=== PATIENT | male | born 1945 | race Caucasian/White ===

== ENCOUNTER → 2018-06-22 | Outpatient (CLI) | payer MEDICARE ==
--- NOTE | 2018-06-22 09:21 | CT ---
EXAMINATION TYPE: CT iac wo con DATE OF EXAM: 06/22/2018 COMPARISON: HISTORY: Recurrent ear infections. CT DLP: 150mGycm Automated exposure control for dose reduction was used. FINDINGS: The external auditory canals are patent bilaterally. There is soft tissue that surrounds the right ossicular chain and middle ear cavity consistent with c holesteatoma. There appears to be erosive change of the ossicular chain. Thickening of the tympanic m embrane is noted. There is near complete opacification of the right sided mastoid air cells. No bony destructive process is noted. Left-sided ossicular chain and middle ear structures are within normal limits. Left-sided tympanic m embrane is unremarkable. Left-sided mastoid air cells are well-aerated. The cochlea and the semicircular canals are symmetric and unremarkable. Vestibular aqueduct and inte rnal carotid canal appear unremarkable. Temporomandibular joints are maintained bilaterally. Mild chronic sinusitis involving the maxillary and ethmoid air cells. IMPRESSION: 1. 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
== END | disposition home or self-care (01) ==
LOC: RADCTMAIN 06:46
PROVIDERS: ATTEND Otolaryngology
DX: H70.91 Unspecified mastoiditis, right ear (principal); H71.91 Unspecified cholesteatoma, right ear
CPT/HCPCS: 70480

== ENCOUNTER 2020-06-04 07:39 | Emergency (ER) | payer MEDICARE ==
[2020-06-04 07:46] VITALS: BP 151/79; PULSE 58; RESP 18; TEMP 98.2
[2020-06-04] MEDS ORDERED: DIPH,PERTUS(ACELL)TETVAC-LF 0.5 ML VIAL IM ONE (07:54)
[2020-06-04] MEDS ORDERED: FLUORESCEIN STRIPS 1 MG STRIP LEFT EYE STA (07:55)
[2020-06-04] MEDS ORDERED: PROPARACAINE 0.5% OPHTH DROPS 15 ML BTL LEFT EYE STA (07:55)
--- NOTE | 2020-06-04 08:13 | ED ---
General Adult HPI - General Source: patient, RN notes reviewed Mode of arrival: ambulatory Limitations: no limitations <Wade Perez - Last Filed: 06/04/20 08:31> <Peter Galo - Last Filed: 06/04/20 08:52> - General Chief complaint: Eye Problems Stated complaint: lt eye irritation Time Seen by Provider: 06/04/20 07:54 - History of Present Illness Initial comments: 75-year-old male presents to the emergency room for a chief complaint of left eye pain. Patient states that yesterday around 4:00 PM he was pulling out a cage around a blush. States that he hit his eye with this. States it has been irritated since that time. He states he did get some small pieces of dirt out of the eye. He is not sure if there is anything left in the eye. He denies visual changes beside mild blurry vision from his eye watering. He reports that keeping his eye open and not blinking makes it feel better. He also reports a cold compress over the closed eye makes it feel better. Patient reports he is not up-to-date on tetanus. He does not wear contacts. Patient has no other complaints at this time including shortness of breath, chest pain, abdominal pain, nausea or vomiting, headache, or visual changes. (Wade Perez) - Related Data Home Medications Medication Instructions Recorded Confirmed Aspirin 81 mg PO DAILY 02/14/14 06/04/20 Multivitamins, Thera [Multivitamin] 1 tab PO DAILY 02/14/14 06/04/20 Atorvastatin [Lipitor] 40 mg PO HS 06/04/20 06/04/20 Chlorthalidone [Hygroton] 25 mg PO DAILY 06/04/20 06/04/20 amLODIPine [Norvasc] 10 mg PO HS 06/04/20 06/04/20 Previous Rx's Medication Instructions Recorded Erythromycin Ophth Oint [Romycin 1 applic LEFT EYE QID 7 Days #10 gm 06/04/20 Ophth Oint] Allergies Allergy/AdvReac Type Severity Reaction Status Date / Time No Known Allergies Allergy Verified 06/04/20 08:17 Review of Systems ROS Other: All systems not noted in ROS Statement are negative. <Wade Perez - Last Filed: 06/04/20 08:31> ROS Other: All systems not noted in ROS Statement are negative. <Peter aGlo - Last Filed: 06/04/20 08:52> ROS Statement: Those systems with pertinent positive or pertinent negative responses have been documented in the HPI. Past Medical History Past Medical History: Hypertension Additional Past Medical History / Comment(s): SINUS INFECTION History of Any Multi-Drug Resistant Organisms: None Reported Additional Past Surgical History / Comment(s): MYRINGOTOMY W/ MIHIR TUBES INSERTED 02-13-14 Past Anesthesia/Blood Transfusion Reactions: No Reported Reaction Smoking Status: Never smoker Past Alcohol Use History: Occasional Past Drug Use History: None Reported <Wade Perez P - Last Filed: 06/04/20 08:31> General Exam Limitations: no limitations General appearance: alert, in no apparent distress Head exam: Present: atraumatic, normocephalic, normal inspection Eye exam: Present: PERRL, EOMI, conjunctival injection (The patient does have erythema noted of the conjunctiva of the left eye.). Absent: scleral icterus, periorbital swelling, periorbital tenderness Expanded Eyelids: Normal Inspection: Bilateral Pupils: Regular, Round: Bilateral Sclera/Conjunctival: Injection: Left ENT exam: Present: normal exam, mucous membranes moist Neck exam: Present: normal inspection, full ROM. Absent: tenderness, meningismus, lymphadenopathy Respiratory exam: Present: normal lung sounds bilaterally. Absent: respiratory distress, wheezes, rales, rhonchi, stridor Cardiovascular Exam: Present: regular rate, normal rhythm, normal heart sounds. Absent: systolic murmur, diastolic murmur, rubs, gallop, clicks <Wade Perez - Last Filed: 06/04/20 08:31> Course <Peter Galo - Last Filed: 06/04/20 08:52> Vital Signs 06/04/20 07:43 Temperature 98.2 F Pulse Rate 58 L Respiratory 18 Rate Blood Pressure 151/79 O2 Sat by Pulse 98 Oximetry - Reevaluation(s) Reevaluation #1: 06/04/20 08:51 PA supervision: I proceeded [id number] evaluation the patient. He did do some gardening yesterday was pointing up a fence from around a pagan and subsequently struck him in the left eye. He was concerned he may have a foreign body. He does demonstrate evidence of a corneal abrasion. He does have some corneal abrasion and some scleral injection no other significant findings. I do agree with the assessment and plan. (Peter Galo) Medical Decision Making <Wade Perez - Last Filed: 06/04/20 08:31> - Medical Decision Making The eye was numbed with proparacaine which did alleviate patient symptoms momentarily. The eye was inspected, conjunctiva is erythematous. Both eyelids were flipped, no foreign bodies. The eye was flushed with saline, no evidence of foreign body. Fluorescein stain was used with the Wood's lamp, there is an abrasion at about 4:00 on the left eye. Patient will be treated with antibiotic ointment. He is updated on tetanus. He was given referral to ophthalmology. He will return for any worsening symptoms and will otherwise follow up with his doctor. (Wade Perez) Disposition Is patient prescribed a controlled substance at d/c from ED?: No Time of Disposition: 08:26 <Wade Perez - Last Filed: 06/04/20 08:31> <Peter Galo - Last Filed: 06/04/20 08:52> Clinical Impression: Corneal abrasion, left Disposition: HOME SELF-CARE Condition: Good Instructions (If sedation given, give patient instructions): Corneal Abrasion (ED) Additional Instructions: Please apply antibiotic ointment as directed. Please follow-up with op hthalmology. If you have any worsening symptoms return to the emergency room. Prescriptions: Erythromycin Ophth Oint [Romycin Ophth Oint] 1 applic LEFT EYE QID 7 Days #10 gm Referrals: Liu Gonzalez MD [Primary Care Provider] - 1-2 days Jean Vivar MD [STAFF PHYSICIAN] - 1-2 days
[2020-06-04] MEDS ORDERED: ERYTHROMYCIN 5 MG/GM OPHTH OINT 1 GM TUBE BOTH EYES STA (08:27)
== END 2020-06-04 08:46 | disposition home or self-care (01) ==
LOC: EC 07:39
DX: S05.02XA Injury of conjunctiva and corneal abrasion without foreign body, left eye, initial encounter (principal); I10 Essential (primary) hypertension; Z79.82 Long term (current) use of aspirin; Z79.899 Other long term (current) drug therapy; Z23 Encounter for immunization; W22.8XXA Striking against or struck by other objects, initial encounter; Y93.H2 Activity, gardening and landscaping; Y92.89 Other specified places as the place of occurrence of the external cause
CPT/HCPCS: 90471; 90715; 99283

== ENCOUNTER → 2020-10-25 | Outpatient (CLI) | payer MEDICARE ==
[2020-10-26 01:49] LABS: African American GFR (CKD) 76.8 (60.0-200.0); Albumin 4.8 g/dL (3.80-4.90); Albumin/Globulin Ratio 1.78 (1.60-3.17); Anion Gap 11.9 mmol/L (4.00-12.00); BUN/Creat Ratio 20.91 Ratio (12.00-20.00); Calcium 9.9 mg/dL (8.7-10.3); Carbon Dioxide 29.1 mmol/L (21.6-31.8); Chol/HDL Ratio 2.96; Globulin 2.7 g/dL (1.6-3.3); LDL Cholesterol,Calculated 74.8 mg/dL (0.0-131.0); Non-African American GFR(CKD) 66.2 (60.0-200.0); Potassium 4.1 mmol/L (3.5-5.5); Total Bilirubin 0.7 mg/dL (0.3-1.2); Total Protein 7.5 g/dL (6.2-8.2); VLDL Calculation 21.2 mg/dL (5.00-40.00)
== END | disposition home or self-care (01) ==
LOC: LABWHC1 08:06
PROVIDERS: ATTEND Internal Medicine Interventional Cardiology
DX: E78.2 Mixed hyperlipidemia (principal)
CPT/HCPCS: 36415; 80053; 80061

== ENCOUNTER → 2020-11-21 | Outpatient (CLI) | payer MEDICARE ==
[2020-11-21 12:36] LABS: HCT 46.5 % (39.0-53.0); HGB 16.2 gm/dL (13.0-17.5); MCH 32.3 pg (25.0-35.0); MCHC 34.9 g/dL (31.0-37.0); MCV 92.5 fL (80.0-100.0); Mean Platelet Volume 6.9; Platelet Count 246 k/uL (150-450); RBC 5.02 m/uL (4.30-5.90); RDW 12.5 % (11.5-15.5); WBC 6.9 k/uL (3.8-10.6)
[2020-11-21 13:00] LABS: African American GFR (CKD) >90 (>60 ml/min/1.73 sqM); Anion Gap 9 mmol/L; Blood Urea Nitrogen 28 mg/dL (9-20); Carbon Dioxide 30 mmol/L (22-30); Chloride 98 mmol/L (98-107); Non-African American GFR(CKD) 84 (>60 ml/min/1.73 sqM); Potassium 3.9 mmol/L (3.5-5.1); Sodium 137 mmol/L (137-145)
== END | disposition home or self-care (01) ==
LOC: LABPAT 12:13
PROVIDERS: ATTEND Internal Medicine Interventional Cardiology
DX: Z01.818 Encounter for other preprocedural examination (principal); I25.10 Atherosclerotic heart disease of native coronary artery without angina pectoris
CPT/HCPCS: 36415; 80051; 82565; 84520; 85027

== ENCOUNTER 2020-12-05 08:02 | Day surgery (SDC) | payer MEDICARE ==
[2020-11-30 15:38] VITALS: BMI 34.4
[~2020-12-05 08:02] MED LIST: ALPRAZolam 0.25 MG TAB PO PRN; ALPRAZolam 0.5 MG TAB PO PRN; ASPIRIN 325 MG TAB PO ONE; ATORVASTATIN 80 MG TAB PO ONE; LACTATED RINGERS 1,000 ML IV SCH; LIDOCAINE 1% (10MG/ML) FOR IV START INTRADERMA PRN; NITROGLYCERIN SL TABS 0.4 MG TAB SUBLINGUAL PRN; SODIUM CHLORIDE 0.9% 1,000 ML in EMPTY BAG 1 BAG IV ONE
[2020-12-05 08:29] VITALS: RESP 16; TEMP 97.8
[2020-12-05] MEDS ORDERED: VERAPAMIL 2.5 MG/ML 2 ML AMP ONE (08:53)
[2020-12-05] MEDS ORDERED: fentaNYL (PF) 50 MCG/ML 2 ML AMP ONE (08:53)
[2020-12-05] MEDS ORDERED: HEPARIN SODIUM 1,000 UN/ML (10ML VL) ONE (08:53)
[2020-12-05] MEDS ORDERED: LIDOCAINE 1% INJ 10MG/ML (20 ML MDV) ONE (08:53)
[2020-12-05] MEDS ORDERED: fentaNYL (PF) 50 MCG/ML 2 ML AMP IVP ONE (09:17)
[2020-12-05] MEDS ORDERED: LIDOCAINE 1% INJ 10MG/ML (20 ML MDV) SQ ONE (09:20)
[2020-12-05] MEDS ORDERED: MIDAZOLAM 2 MG/2 ML VIAL IVP ONE (09:23)
[2020-12-05] MEDS ORDERED: VERAPAMIL SYRINGE (5 MG/10 ML) INTRAARTER ONE (09:24)
[2020-12-05] MEDS: HEPARIN SODIUM 1,000 UN/ML (10ML VL) IV ONE ×3 (09:28→10:00)
[2020-12-05] MEDS ORDERED: CLOPIDOGREL 75 MG TAB ONE (09:37)
[2020-12-05] MEDS ORDERED: CLOPIDOGREL 75 MG TAB PO ONE (09:40)
[2020-12-05] MEDS ORDERED: NITROGLYCERIN 1000MCG/10ML SYRINGE INTRACORON ONE (09:45)
[2020-12-05] MEDS ORDERED: IOPAMIDOL-370 125ML BTL INJ ONE (09:49)
[2020-12-05] MEDS ORDERED: IOPAMIDOL-370 100ML BTL INJ ONE (09:55)
[2020-12-05] MEDS ORDERED: RX INFO: IV CONTRAST WAS GIVEN 1 EACH MISC MISCELLANE PRN (10:10)
[2020-12-05] MEDS ORDERED: NITROGLYCERIN SL TABS 0.4 MG TAB SUBLINGUAL PRN (10:10)
[2020-12-05] MEDS ORDERED: ZOLPIDEM 5 MG TAB PO PRN (10:10)
[2020-12-05] MEDS ORDERED: MAG HYDROX/AL HYDROX/SIMETH 30 ML CUP PO PRN (10:10)
[2020-12-05] MEDS ORDERED: ATROPINE SULFATE 0.1 MG/ML 10ML SYRINGE IV PRN (10:10)
[2020-12-05] MEDS ORDERED: SODIUM CHLORIDE 0.9% 1,000 ML IV SCH (10:15)
--- NOTE | 2020-12-05 10:41 | CC ---
CARDIAC CATHETERIZATION REPORT Mr. Smith is a 75-year-old male with a known history of hypertension, hyperlipidemia, who has been complaining of episode of chest discomfort, underwent a myocardial perfusion imaging that showed a fixed inferior wall defect, but he had evidence of significant ST-segment depression that persisted late in recovery. In view of that, recommendation was made regarding cardiac catheterization. The procedure as well as the risks and the complications were discussed with the patient who is in full understanding and agreement. PROCEDURE: Patient was brought to the quality lab technician in fasting semi-sedated state after receiving fentanyl and Benadryl and achieving moderate conscious sedated state. Using Xylocaine anesthesia and Seldinger technique a 6-Ukrainian sheath was introduced in the right radial artery. Selective right and left coronary angiography performed using 5-Ukrainian 3.5 bend right and left Becky catheter. Multiple views of the coronary artery including hemiaxial views were obtained. Following that, catheters were removed. Images were reviewed. Of note, the patient received initially 5000 units of intravenous heparin as well as intra-arterial verapamil. FINDINGS: FLUOROSCOPY: There was calcification of the aortic valve. LEFT MAIN: This is a short size vessel, bifurcating into left circumflex, left anterior descending artery. Left main coronary artery has no evidence of high-grade stenosis. LEFT ANTERIOR DESCENDING ARTERY: This is a large-sized vessel tapers down distal third, gives rise to a diagonal branch proximally. The left anterior descending artery in the proximal segment has a 20% to 30% plaque. There is another 30% to 40% plaque in the mid segment with diffuse intimal disease. There is no focal high-grade stenosis. LEFT CIRCUMFLEX: This is a nondominant vessel, large in caliber giving rise to a large obtuse marginal branch. The proximal left circumflex at the takeoff of the obtuse marginal branch has a 95% eccentric lesion. The rest of the vessel has no high-grade stenosis. RIGHT CORONARY ARTERY: This is a dominant vessel bifurcating distally PDA and posterolateral segment and branches. The right coronary artery has diffuse intimal disease in the proximal mid and distal area with stenosis up to 30% to 40% without any discrete high-grade stenosis. There is a plaque at the takeoff of the PDA. LEFT VENTRICULOGRAM: Left ventriculogram was not performed. CONCLUSION: 1. Calcified aortic valve. 2. Critical stenosis in the proximal left circumflex and the proximal obtuse marginal branch 1. 3. Moderate disease in the LAD and the right coronary artery. RECOMMENDATION: In view of finding anatomy, I recommend proceeding with angioplasty and stenting of the left circumflex. The procedure as well as the risks and the complications were discussed with the patient who is in full understanding and agreement. FARIDEH / MONSE: [id number] /
--- NOTE | 2020-12-05 10:45 | PTCA ---
PERCUTANEOUSTRANS CORORONARY ANGIOGRAPHY Mr. Smith is a 75-year-old male with known history of hypertension, hyperlipidemia, who presented with symptoms of chest discomfort and had an abnormal electrocardiographic stress testing. In view of that, underwent cardiac catheterization and was found to have critical stenosis involving the proximal left circumflex. In view of that, recommendation was made regarding angioplasty and stenting. The procedure as well as the risks and the complications were discussed with the patient who is in full understanding and agreement. PROCEDURE: A 6-[place] 3.5 guiding catheter introduced in the system. After cannulating the left main a 0.014 balanced medium weight J-wire was advanced across the lesion, positioned distally then a 2.5 x 12 mm NC Trek balloon was advanced at one inflation at 8 atmospheres was done. Following that, the balloon was removed and a 2.5 x 15 mm Xience Guillermina stent was advanced, deployed and post dilated at 16 atmospheres. After the last inflation, after appropriate wait, the balloon and the guidewire were withdrawn back in the guiding catheter. Images were obtained and repeated. Those images reveal stable successful stenting. At that point, the guiding catheter, the balloon and the guidewire removed. The sheath was removed. Hemostasis was obtained with deployment of a TR band. There was no immediate complication. Patient was returned to his room in stable condition. Of note, the patient received an additional 3000 units of intravenous heparin during the procedure. He received a loading dose of clopidogrel. He had no chest discomfort or significant EKG changes with the inflation. RESULTS: Successful stenting of the proximal left circumflex with reduction of stenosis from 95% to 0%. RECOMMENDATION: Patient will be continued on aspirin, Plavix and statin. The importance of dual antiplatelet treatment were discussed with the patient and he is in full understanding and agreement. Duration of sedation is 36 minutes. MMODL / IJN: [id number] /
[2020-12-05 11:01] VITALS: BP 122/63; PULSE 50
[2020-12-05] MEDS ORDERED: ATORVASTATIN 40 MG TAB PO SCH (21:00)
[2020-12-05] MEDS ORDERED: amLODIPine 10 MG TAB PO SCH (21:00)
[2020-12-06] MEDS ORDERED: NON FORMULARY DRUG (Cinnamon Bark [Cinnamon] 500 MG Capsule) PO SCH (09:00)
[2020-12-06] MEDS ORDERED: NON FORMULARY DRUG (Garlic [Garlic] 1 EACH Tablet) PO SCH (09:00)
[2020-12-06] MEDS ORDERED: NON FORMULARY DRUG (Glucos Sul 2kcl/Msm/Chond/C/Mn [Glucosamine Chondroitin Cap] 1 EACH Ca PO SCH (09:00)
[2020-12-06] MEDS ORDERED: ASPIRIN 81 MG PO SCH (09:00)
[2020-12-06] MEDS ORDERED: CHLORTHALIDONE 25 MG TAB PO SCH (09:00)
[2020-12-06] MEDS ORDERED: NON FORMULARY DRUG (Omega-3 Fatty Acids/Fish Oil [Fish Oil 1,000 Mg Softgel] 1 EACH Capsul PO SCH (09:00)
[2020-12-06] MEDS ORDERED: CLOPIDOGREL 75 MG TAB PO SCH (09:00)
== END 2020-12-05 14:50 | disposition home or self-care (01) ==
LOC: CATHCVL 08:02
PROVIDERS: ATTEND Internal Medicine Interventional Cardiology
DX: I25.10 Atherosclerotic heart disease of native coronary artery without angina pectoris (principal); I70.0 Atherosclerosis of aorta; I10 Essential (primary) hypertension; R94.39 Abnormal result of other cardiovascular function study; E78.2 Mixed hyperlipidemia; E78.00 Pure hypercholesterolemia, unspecified; I73.9 Peripheral vascular disease, unspecified; Z82.49 Family history of ischemic heart disease and other diseases of the circulatory system; I35.0 Nonrheumatic aortic (valve) stenosis; I65.21 Occlusion and stenosis of right carotid artery; Z79.82 Long term (current) use of aspirin; Z79.899 Other long term (current) drug therapy
CPT/HCPCS: 93454; 85347; 87635; C9600; C1769 ×2; C1725; C1887; C1874; C1894; J2250; J2001; J3010; J1644; Q9967 ×2

== ENCOUNTER 2021-02-05 12:31 | Emergency (ER) | payer MEDICARE ==
[2021-02-05 12:59] VITALS: BP 124/77; PULSE 60; RESP 18; TEMP 99
[2021-02-05] MEDS ORDERED: ACETAMINOPHEN TAB 500 MG TAB PO STA (14:18)
--- NOTE | 2021-02-05 14:48 | XR ---
EXAMINATION TYPE: XR foot complete LT DATE OF EXAM: 02/05/2021 CLINICAL HISTORY: Left great toe pain x2 days TECHNIQUE: Frontal, lateral, and oblique images of the left foot are obtained. COMPARISON: None FINDINGS: There are marked degenerative changes seen at the first metatarsal-phalangeal joint with subchondral sclerosis and osteophytosis. Degenerative changes are also noted in the mid foot. Os peroneum is seen . There are enthesophytes at the Achilles tendon and plantar fascial attachments onto the calcaneus. No definite acute fracture or dislocation. IMPRESSION: Chronic changes, as described.
--- NOTE | 2021-02-05 14:50 | ED ---
Extremity Problem HPI - General Chief complaint: Extremity Problem,Nontraumatic Stated complaint: L Foot Pain/Swelling Time Seen by Provider: 02/05/21 14:00 Source: patient, RN notes reviewed Mode of arrival: ambulatory Limitations: no limitations - History of Present Illness Initial comments: Patient is a 76-year-old male presents to emergency room complaining of left great toe pain with some redness and left calf cramping for the past several days. He notes he does not have a history of gout does not remember injuring or have any trauma to his toe. He notes that he recently followed scrum coach in was told everything looked good. He notes that he has not like to take pain medication or NSAIDs as he was hooked on it earlier in his life and cause some GI issues. He notes that he does take cholesterol medication and was informed that sometimes it can cause muscle cramps and fatigue and aches. He denied any other complaints or issues. He didn't denied any weakness numbness tingling in his left great toe. He did have some decreased range of motion secondary to pain. He denied any chest pain shortness breath headache nausea vomiting diarrhea constipation fever fatigue chills. - Related Data Home Medications Medication Instructions Recorded Confirmed Aspirin 81 mg PO DAILY 02/14/14 12/05/20 Atorvastatin [Lipitor] 40 mg PO HS 06/04/20 12/05/20 Chlorthalidone [Hygroton] 25 mg PO DAILY 06/04/20 12/05/20 amLODIPine [Norvasc] 10 mg PO HS 06/04/20 12/05/20 Cinnamon Bark [Cinnamon] 500 mg PO DAILY 11/30/20 12/05/20 Garlic 1 each PO DAILY 11/30/20 12/05/20 Glucos Sul 2Kcl/MSM/Chond/C/Mn 1 each PO DAILY 11/30/20 12/05/20 [Glucosamine Chondroitin Cap] [place]-3 Fatty Acids/Fish Oil [Fish 1 each PO DAILY 11/30/20 12/05/20 Oil 1,000 mg Softgel] Previous Rx's Medication Instructions Recorded Clopidogrel Bisulfate [Plavix] 75 mg PO DAILY #90 tab 12/05/20 Nitroglycerin Sl Tabs [Nitrostat] 0.4 mg SUBLINGUAL Q5M PRN #25 tab 12/05/20 Naproxen [Naprosyn] 500 mg PO Q12HR 7 Days #14 tab 02/05/21 Allergies Allergy/AdvReac Type Severity Reaction Status Date / Time No Known Allergies Allergy Verified 02/05/21 12:59 Review of Systems ROS Statement: Those systems with pertinent positive or pertinent negative responses have been documented in the HPI. ROS Other: All systems not noted in ROS Statement are negative. Past Medical History Past Medical History: Hyperlipidemia, Hypertension, Osteoarthritis (OA) Additional Past Medical History / Comment(s): recent stress test, "extra heartbeat" per pt., had duodenal ulcer in college, sinus & allergy issues History of Any Multi-Drug Resistant Organisms: None Reported Past Surgical History: Appendectomy, Heart Catheterization, Heart Catheterization With Stent Additional Past Surgical History / Comment(s): MYRINGOTOMY W/ MIHIR TUBES INSERTED, several ear surgeries related to infection Past Anesthesia/Blood Transfusion Reactions: No Reported Reaction Past Psychological History: Anxiety Smoking Status: Never smoker Past Alcohol Use History: Occasional Past Drug Use History: None Reported General Exam Limitations: no limitations General appearance: alert, in no apparent distress, obese Head exam: Present: atraumatic, normocephalic, normal inspection Neck exam: Present: normal inspection Respiratory exam: Present: normal lung sounds bilaterally. Absent: respiratory distress, wheezes, rales, rhonchi, stridor Cardiovascular Exam: Present: regular rate, normal rhythm, normal heart sounds. Absent: systolic murmur, diastolic murmur, rubs, gallop, clicks Left Lower Leg exam: Present: normal inspection, full ROM, tenderness (Tenderness over bruise on the medial aspect.). Absent: swelling, abrasion, laceration Foot/Toe exam: Present: tenderness (Left great toe), swelling (To the proximal joint of the left great toe), erythema (Possible joint of the left great toe). Absent: full ROM (Neck and head pain) Neurological exam: Present: alert, oriented X3, CN II-XII intact Psychiatric exam: Present: normal affect, normal mood Skin exam: Present: warm, dry, intact, normal color. Absent: rash Course Vital Signs 02/05/21 12:56 Temperature 99 F Pulse Rate 60 Respiratory 18 Rate Blood Pressure 124/77 O2 Sat by Pulse 98 Oximetry Medical Decision Making - Medical Decision Making 76-year-old male complaining of left great toe and left calf cramping for the past several days. 1000 mg of Tylenol, left foot x-ray and left lower extremity ultrasound ordered. Labs ordered. Labs: Potassium 3.0, rest unremarkable. 20 mEq of potassium ordered. Imaging negative for any acute process. Most likely gout given monoarthropathy with redness and tenderness and swelling to the left metatarsophalangeal joint of the first digit. Case discussed with Dr. Brooke, patient discharge home with NSAID therapy and follow-up primary care. - Lab Data Result diagrams: 02/05/21 14:42 02/05/21 14:42 Lab Results 02/05/21 02/05/21 Range/Units 14:42 14:42 WBC 8.7 (3.8-10.6) k/uL RBC 4.89 (4.30-5.90) m/uL Hgb 15.9 (13.0-17.5) gm/dL Hct 44.8 (39.0-53.0) % MCV 91.7 (80.0-100.0) fL MCH 32.6 (25.0-35.0) pg MCHC 35.5 (31.0-37.0) g/dL RDW 12.6 (11.5-15.5) % Plt Count 210 (150-450) k/uL MPV 7.4 Neutrophils % 77 % Lymphocytes % 11 % Monocytes % 8 % Eosinophils % 1 % Basophils % 0 % Neutrophils # 6.7 (1.3-7.7) k/uL Lymphocytes # 1.0 (1.0-4.8) k/uL Monocytes # 0.7 (0-1.0) k/uL Eosinophils # 0.1 (0-0.7) k/uL Basophils # 0.0 (0-0.2) k/uL Sodium 137 (137-145) mmol/L Potassium 3.0 L (3.5-5.1) mmol/L Chloride 98 (98-107) mmol/L Carbon Dioxide 28 (22-30) mmol/L Anion Gap 11 mmol/L BUN 24 H (9-20) mg/dL Creatinine 0.87 (0.66-1.25) mg/dL Est GFR (CKD-EPI)AfAm >90 (>60 ml/min/1.73 sqM) Est GFR (CKD-EPI)NonAf 85 (>60 ml/min/1.73 sqM) Glucose 111 H (74-99) mg/dL Calcium 9.4 (8.4-10.2) mg/dL - Radiology Data Radiology results: report reviewed, image reviewed Left foot x-ray: There are marked degenerative changes seen at the first metatarsophalangeal joint with subchondral sclerosis and osteophytosis. Degenerative changes are also noted in the midfoot. Os. [place] seen. There are empty sulfites at the Achilles tendon and plantar fascial attachments onto the calcaneus. No definite acute fracture or dislocation. Ultrasound left lower extremity: Negative for DVT. Disposition Clinical Impression: Gouty arthritis of left great toe Disposition: HOME SELF-CARE Condition: Stable Instructions (If sedation given, give patient instructions): Gout (ED) Additional Instructions: Please return to the Emergency Department if symptoms worsen or any other concerns. Follow-up with primary care in the next several days. Take naproxen as prescribed. Use as tolerated. Prescriptions: Naproxen [Naprosyn] 500 mg PO Q12HR 7 Days #14 tab Is patient prescribed a controlled substance at d/c from ED?: No Referrals: Liu Gnozalez MD [Primary Care Provider] - 1-2 days Time of Disposition: 15:47
[2021-02-05 14:58] LABS: Basophils % (A) 0 %; Eosinophils # (A) 0.1 k/uL (0-0.7); Eosinophils % (A) 1 %; HCT 44.8 % (39.0-53.0); HGB 15.9 gm/dL (13.0-17.5); Lymphocytes % (A) 11 %; MCH 32.6 pg (25.0-35.0); MCHC 35.5 g/dL (31.0-37.0); MCV 91.7 fL (80.0-100.0); Mean Platelet Volume 7.4; Monocytes # (A) 0.7 k/uL (0-1.0); Monocytes % (A) 8 %; Neutrophils # (A) 6.7 k/uL (1.3-7.7); Neutrophils % (A) 77 %; Platelet Count 210 k/uL (150-450); RBC 4.89 m/uL (4.30-5.90); RDW 12.6 % (11.5-15.5); WBC 8.7 k/uL (3.8-10.6)
[2021-02-05 15:14] LABS: African American GFR (CKD) >90 (>60 ml/min/1.73 sqM); Anion Gap 11 mmol/L; Blood Urea Nitrogen 24 mg/dL (9-20); Calcium 9.4 mg/dL (8.4-10.2); Carbon Dioxide 28 mmol/L (22-30); Chloride 98 mmol/L (98-107); Glucose 111 mg/dL (74-99); Non-African American GFR(CKD) 85 (>60 ml/min/1.73 sqM); Sodium 137 mmol/L (137-145)
[2021-02-05] MEDS ORDERED: POTASSIUM CHLORIDE ER 20 MEQ TAB.ER PO STA (15:15)
--- NOTE | 2021-02-05 15:41 | US ---
EXAMINATION TYPE: US venous doppler duplex LE LT DATE OF EXAM: 02/05/2021 3:34 PM COMPARISON: NONE CLINICAL HISTORY: Left calf pain. SIDE PERFORMED: Left TECHNIQUE: The lower extremity deep venous system is examined utilizing real time linear array sonog sheldon with graded compression, doppler sonography and color-flow sonography. VESSELS IMAGED: Common Femoral Vein Deep Femoral Vein Greater Saphenous Vein * Femoral Vein Popliteal Vein Small Saphenous Vein * Proximal Calf Veins (* superficial vessels) Left Leg: Negative for DVT IMPRESSION: Grayscale, color doppler, spectral doppler imaging performed of the deep veins of the lo wer extremities. There is normal flow, compressibility, vascular waveforms.
== END 2021-02-05 15:58 | disposition home or self-care (01) ==
LOC: EC 12:31
DX: M10.9 Gout, unspecified (principal); R22.42 Localized swelling, mass and lump, left lower limb; I10 Essential (primary) hypertension; E78.5 Hyperlipidemia, unspecified; M19.90 Unspecified osteoarthritis, unspecified site; Z79.82 Long term (current) use of aspirin; Z79.899 Other long term (current) drug therapy
CPT/HCPCS: 36415; 80048; 85025; 99284

== ENCOUNTER → 2021-02-28 | Outpatient (CLI) | payer MEDICARE ==
[2021-02-28 14:00] LABS: Chol/HDL Ratio 2.85; LDL Cholesterol,Calculated 58.8 mg/dL (0.0-131.0); VLDL Calculation 13.2 mg/dL (5.00-40.00)
== END | disposition home or self-care (01) ==
LOC: LABWHC1 07:27
PROVIDERS: ATTEND Nurse Practitioner Adult Health
DX: E78.2 Mixed hyperlipidemia (principal)
CPT/HCPCS: 36415; 80061; 84450; 84460

== ENCOUNTER → 2021-08-23 | Outpatient (CLI) | payer MEDICARE ==
[2021-08-23 15:31] LABS: ALT 45 U/L (10-49); AST 34 U/L (14-35); African American GFR (CKD) 85.8 (60.0-200.0); Albumin 4.3 g/dL (3.8-4.9); Albumin/Globulin Ratio 1.75 (1.60-3.17); Alkaline Phosphatase 82 U/L (41-126); BUN/Creat Ratio 22.04 Ratio (12.00-20.00); Carbon Dioxide 25.6 mmol/L (20.0-27.5); Chloride 101 mmol/L (96-109); Chol/HDL Ratio 2.46 Ratio; Globulin 2.5 g/dL (1.6-3.3); Glucose 120 mg/dL (70-110); Potassium 4.1 mmol/L (3.5-5.5); Sodium 139 mmol/L (135-145); Total Protein 6.7 g/dL (6.2-8.2); VLDL Calculation 11.86 mg/dL (5.00-40.00)
== END | disposition home or self-care (01) ==
LOC: LABWHC1 08:35
PROVIDERS: ATTEND Internal Medicine Interventional Cardiology
DX: E78.2 Mixed hyperlipidemia (principal)
CPT/HCPCS: 36415; 80053; 80061

== ENCOUNTER → 2022-02-21 | Outpatient (CLI) | payer MEDICARE ==
[2022-02-21 14:55] LABS: ALT 47 U/L (10-49); AST 35 U/L (14-35); African American GFR (CKD) 75.7 (60.0-200.0); Albumin 4.4 g/dL (3.8-4.9); Albumin/Globulin Ratio 1.57 (1.60-3.17); Alkaline Phosphatase 84 U/L (41-126); BUN/Creat Ratio 15.73 Ratio (12.00-20.00); Blood Urea Nitrogen 17.3 mg/dL (9.0-27.0); Calcium 9.3 mg/dL (8.7-10.3); Carbon Dioxide 28.6 mmol/L (20.0-27.5); Chloride 105 mmol/L (96-109); Globulin 2.8 g/dL (1.6-3.3); Glucose 115 mg/dL (70-110); LDL Cholesterol,Calculated 51.1 mg/dL (0.0-131.0); Non-African American GFR(CKD) 65.3 (60.0-200.0); Potassium 4.6 mmol/L (3.5-5.5); Sodium 142 mmol/L (135-145); Total Protein 7.2 g/dL (6.2-8.2); VLDL Calculation 12.16 mg/dL (5.00-40.00)
== END | disposition home or self-care (01) ==
LOC: LABWHC1 07:56
PROVIDERS: ATTEND Internal Medicine Interventional Cardiology
DX: E78.2 Mixed hyperlipidemia (principal)
CPT/HCPCS: 36415; 80053; 80061

== ENCOUNTER → 2022-08-27 | Outpatient (CLI) | payer MEDICARE ==
[2022-08-27 16:19] LABS: ALT 49 U/L (10-49)
[2022-08-27 16:20] LABS: AST 42 U/L (14-35); Chol/HDL Ratio 2.62 Ratio; LDL Cholesterol,Calculated 59.1 mg/dL (0.0-131.0); VLDL Calculation 15.14 mg/dL (5.00-40.00)
== END | disposition home or self-care (01) ==
LOC: LABWHC1 08:14
PROVIDERS: ATTEND Internal Medicine Interventional Cardiology
DX: E78.2 Mixed hyperlipidemia (principal)
CPT/HCPCS: 36415; 80061; 84450; 84460

== ENCOUNTER 2022-09-03 08:36 | Day surgery (SDC) | payer MEDICARE ==
[~2022-09-03 08:36] MED LIST changes: -ALPRAZolam 0.25 MG TAB PO PRN; -ALPRAZolam 0.5 MG TAB PO PRN; -ASPIRIN 325 MG TAB PO ONE; -ATORVASTATIN 80 MG TAB PO ONE; -NITROGLYCERIN SL TABS 0.4 MG TAB SUBLINGUAL PRN; -SODIUM CHLORIDE 0.9% 1,000 ML in EMPTY BAG 1 BAG IV ONE
[2022-09-03 09:42] VITALS: TEMP 97.3
[2022-09-03] MEDS ORDERED: PROPOFOL 10 MG/ML 20 ML VIAL IV ONE (09:58)
--- NOTE | 2022-09-03 10:20 | P.PCN ---
Date of Procedure: 09/03/22 Procedure(s) Performed: BRIEF HISTORY: Patient is a 77-year-old pleasant male scheduled for an elective colonoscopy as a part of screening for colon cancer. PROCEDURE PERFORMED: Colonoscopy. PREOPERATIVE DIAGNOSIS: Screening for colon cancer. IV sedation per Anesthesia. PROCEDURE: After informed consent was obtained, the patient, was brought into the endoscopy unit. IV sedation was administered by Anesthesia under continuous monitoring. Digital rectal examination was normal. Initially the Olympus CF-160 flexible video colonoscope was then inserted in the rectum, gradually advanced into the cecum without any difficulty. Careful examination was performed as the scope was gradually being withdrawn. Ileocecal valve and the appendiceal orifice were visualized and appeared normal. Prep was excellent. Mucosa of the cecum, ascending colon, transverse colon, descending colon, sigmoid colon, and rectum appeared normal. Retroflexion was performed in the rectum and no lesions were seen. The patient tolerated the procedure well. IMPRESSION: Normal-appearing colon from rectum to cecum with no evidence of colorectal neoplasia . RECOMMENDATIONS: Findings of this examination were discussed with the patient is well as his family. He was advised to have a repeat screening colonoscopy in 10 years..
[2022-09-03 10:41] VITALS: BP 146/76; PULSE 52; RESP 16
== END 2022-09-03 11:09 | disposition home or self-care (01) ==
LOC: ORWHC2ENDO 08:36
PROVIDERS: ATTEND Internal Medicine Gastroenterology
DX: Z12.11 Encounter for screening for malignant neoplasm of colon (principal); I25.10 Atherosclerotic heart disease of native coronary artery without angina pectoris; I10 Essential (primary) hypertension; E78.5 Hyperlipidemia, unspecified; I35.0 Nonrheumatic aortic (valve) stenosis; Z95.5 Presence of coronary angioplasty implant and graft; Z79.82 Long term (current) use of aspirin; Z79.899 Other long term (current) drug therapy; Z98.890 Other specified postprocedural states
CPT/HCPCS: J2704; G0121

== ENCOUNTER → 2022-11-26 | Outpatient (CLI) | payer MEDICARE ==
[2022-11-26 09:03] LABS: ALT 42 U/L (4-49); AST 39 U/L (17-59); African American GFR (CKD) 75 (>60 ml/min/1.73 sqM); Albumin/Globulin Ratio 1.3; Alkaline Phosphatase 76 U/L (38-126); Anion Gap 4 mmol/L; Blood Urea Nitrogen 22 mg/dL (9-20); Calcium 8.9 mg/dL (8.4-10.2); Carbon Dioxide 35 mmol/L (22-30); Chloride 102 mmol/L (98-107); Glucose 117 mg/dL (74-99); Non-African American GFR(CKD) 65 (>60 ml/min/1.73 sqM); Sodium 141 mmol/L (137-145); Total Bilirubin 0.7 mg/dL (0.2-1.3)
[2022-11-26 09:56] LABS: Potassium 4.6 mmol/L (3.5-5.1)
[2022-11-26 16:46] LABS: Chol/HDL Ratio 2.52 Ratio; LDL Cholesterol,Calculated 55.2 mg/dL (0.0-131.0)
== END | disposition home or self-care (01) ==
LOC: LABWHC1 07:39
PROVIDERS: ATTEND Internal Medicine Interventional Cardiology
DX: E78.2 Mixed hyperlipidemia (principal); R06.02 Shortness of breath
CPT/HCPCS: 36415; 80053; 80061; 83880

== ENCOUNTER → 2023-01-23 | Outpatient (CLI) | payer MEDICARE ==
--- NOTE | 2023-01-23 07:19 | US ---
EXAMINATION TYPE: US duplex aorta DATE OF EXAM: 01/23/2023 COMPARISON: NONE CLINICAL INDICATION: Male, 78 years old with history of Z13.6; AAA screening. TECHNIQUE: Multiple sonographic images of the abdominal aorta are obtained. FINDINGS: EXAM MEASUREMENTS: Abdominal Aorta: Proximal: 3.2 x 2.9 cm Mid: 2.5 x 2.3 cm Distal: 2.3 x 2.3 cm Bifurcation: Right: 1.1 x 1.3 cm Left: 1.2 x 1.4 cm GUN BARREL FINISHER NOTES: Limited due to gas. Proximal segment appears aneurysmal at 3.2 cm. Mid segment elsi ears ectatic. Slightly limited visibility of iliacs. Aorta is successfully visualized through the bifurcation. IMPRESSION: No ultrasound evidence for greater than 3.0 cm AAA.
== END | disposition home or self-care (01) ==
LOC: RADUSWWP 06:36
PROVIDERS: ATTEND Family Medicine
DX: Z13.6 Encounter for screening for cardiovascular disorders (principal)
CPT/HCPCS: 76706

== ENCOUNTER → 2023-04-29 | Outpatient (CLI) | payer MEDICARE ==
[2023-04-29 18:07] LABS: ALT 44 U/L (10-49); AST 44 U/L (14-35); Albumin 4.4 d/dL (3.8-4.9); Albumin/Globulin Ratio 1.63 Ratio (1.60-3.17); Alkaline Phosphatase 85 U/L (41-126); Blood Urea Nitrogen 23.4 mg/dL (9.0-27.0); Calcium 9.7 mg/dL (8.7-10.3); Carbon Dioxide 29.4 mmol/L (21.6-31.8); Chloride 102 mmol/L (96-109); Chol/HDL Ratio 2.83 Ratio; Globulin 2.7 d/dL (1.6-3.3); Glucose 126 mg/dL (70-110); LDL Cholesterol,Calculated 56.5 mg/dL (0.0-131.0); Potassium 4.5 mmol/L (3.5-5.5); Sodium 140 mmol/L (135-145); Total Bilirubin 0.7 mg/dL (0.3-1.2); Total Protein 7.1 d/dL (6.2-8.2)
== END | disposition home or self-care (01) ==
LOC: LABWHC1 07:23
PROVIDERS: ATTEND Internal Medicine Interventional Cardiology
DX: E78.2 Mixed hyperlipidemia (principal)
CPT/HCPCS: 36415; 80053; 80061

== ENCOUNTER 2023-06-23 06:43 | Day surgery (SDC) | payer MEDICARE ==
[~2023-06-23 06:43] MED LIST changes: +ALPRAZolam 0.25 MG TAB PO PRN; +ALPRAZolam 0.5 MG TAB PO PRN; +ASPIRIN 325 MG TAB PO STA; -LACTATED RINGERS 1,000 ML IV SCH; -LIDOCAINE 1% (10MG/ML) FOR IV START INTRADERMA PRN; +NITROGLYCERIN SL TABS 0.4 MG TAB SUBLINGUAL PRN; +SODIUM CHLORIDE 0.9% 1,000 ML in EMPTY BAG 1 BAG IV SCH
[2023-06-23] MEDS ORDERED: SODIUM CHLORIDE 0.9% 1,000 ML IV ONE (07:13)
[2023-06-23 07:38] LABS: Basophils % (A) 0 %; Eosinophils # (A) 0.1 k/uL (0-0.7); Eosinophils % (A) 2 %; HGB 15.3 gm/dL (13.0-17.5); Lymphocytes # (A) 1.5 k/uL (1.0-4.8); Lymphocytes % (A) 23 %; MCV 94.3 fL (80.0-100.0); Monocytes # (A) 0.5 k/uL (0-1.0); Monocytes % (A) 7 %; Neutrophils # (A) 4.3 k/uL (1.3-7.7); Neutrophils % (A) 65 %; Platelet Count 215 k/uL (150-450); RBC 4.78 m/uL (4.30-5.90); RDW 12.9 % (11.5-15.5); WBC 6.7 k/uL (3.8-10.6)
[2023-06-23 07:41] VITALS: RESP 16; TEMP 98.3
[2023-06-23 07:56] LABS: African American GFR (CKD) >90 (>60 ml/min/1.73 sqM); Anion Gap 12 mmol/L; Blood Urea Nitrogen 22 mg/dL (9-20); Calcium 9.2 mg/dL (8.4-10.2); Carbon Dioxide 26 mmol/L (22-30); Chloride 102 mmol/L (98-107); Glucose 121 mg/dL (74-99); Non-African American GFR(CKD) 86 (>60 ml/min/1.73 sqM); Sodium 140 mmol/L (137-145)
[2023-06-23] MEDS ORDERED: VERAPAMIL 2.5 MG/ML 2 ML AMP ONE (09:16)
[2023-06-23] MEDS ORDERED: LIDOCAINE 1% INJ 10MG/ML (20 ML MDV) ONE (09:17)
[2023-06-23] MEDS ORDERED: IV FLUID CONTINUATION 1,000 ML IV ONE (09:18)
[2023-06-23] MEDS: BENZOCAINE SPRAY 1 CAN TOPICAL ONE ×2 (09:18→09:22)
[2023-06-23] MEDS ORDERED: fentaNYL (PF) 50 MCG/ML 2 ML AMP ONE (09:22)
[2023-06-23] MEDS ORDERED: MIDAZOLAM 2 MG/2 ML VIAL IVP ONE ×2 (09:25→09:26)
[2023-06-23] MEDS ORDERED: fentaNYL (PF) 50 MCG/ML 2 ML AMP IVP ONE (09:25)
--- NOTE | 2023-06-23 09:44 | P.PCN ---
Date of Procedure: 06/23/23 Description of Procedure: Indication: Aortic stenosis Procedure Description: After explaining the procedure to the patient, it's risk and complications, blood pressure, heart rate and O2 saturation were monitored. The throat was sprayed with Cetacaine. Patient received 3 mg intravenous Versed, 50 mcg intra venous fentanyl. The probe was introduced into the esophagus without difficulty. Images were obtained. Following that, the probe was removed. There was no immediate complication. Findings: Left atrial size is dilated, left atrial appendage is normal. Left ventricular size and systolic function are normal. Mild mitral annulus calcification was noted, the tricuspid valve appears to be normal. The aortic valve is a tricuspid valve with severe calcifications and reduced opening, aortic valve area by planimetry is 0.7 cm. Descending thoracic aorta revealed mild atherosclerotic changes. No pericardial effusion was noted. Contrast bubble study revealed no shunting across the interatrial septum with Valsalva maneuver. Doppler: Pulse wave and color Doppler were obtained, and revealed mild mitral and tricuspid regurgitation. The peak gradient across the aortic valve was 90 mmHg with a mean of 58 mmHg. Mild aortic regurgitation was noted. No shunting across the intra-atrial septum was noted. Conclusion: 1. Normal left ventricle size and systolic function 2. Severe tricuspid that would take valve stenosis with a mean gradient of 58 mmHg and mild aortic regurgitation 3. Mild mitral and tricuspid regurgitation 4. Mild atherosclerotic changes of the descending thoracic aorta 5. No shunting across the intra-atrial septum
[2023-06-23] MEDS: LIDOCAINE 1% INJ 10MG/ML (20 ML MDV) SQ ONE ×2 (09:54→09:55)
[2023-06-23] MEDS ORDERED: HEPARIN SODIUM 1,000 UN/ML (10ML VL) IVP ONE (09:59)
[2023-06-23] MEDS ORDERED: IOPAMIDOL-370 100ML BTL INJ ONE (10:17)
[2023-06-23 10:22] LABS: O2 Sat Blood Gas 98.6 %
[2023-06-23 10:25] LABS: O2 Sat Blood Gas 66.2 %
[2023-06-23] MEDS ORDERED: RX INFO: IV CONTRAST WAS GIVEN 1 EACH MISC MISCELLANE PRN (10:26)
[2023-06-23 10:27] LABS: O2 Sat Blood Gas 97.2 %
[2023-06-23] MEDS ORDERED: SODIUM CHLORIDE 0.9% 1,000 ML IV SCH (10:30)
--- NOTE | 2023-06-23 10:37 | P.CARDCATH ---
Date of Procedure: 06/23/23 Description of Procedure: Cardiac Catheterization: The patient is a 78-year-old male with known history of hypertension, hyperlipidemia, CAD status post stenting of the left circumflex in 2020 who has been complaining of progressive fatigue and he had evidence of progression of his aortic stenosis. Recommendations were made regarding cardiac catheterization, the risks and the complications were discussed with the patient who is in full understanding and agreement. Procedure Description: Patient was brought to labour market economist in fasting semi-sedated state after receiving Fentanyl and Benadryl achieiving moderate conscious sedated state. Using Xylocaine Anesthesia and modified Seldinger technique, a 6-Cape Verdean sheath was introduced in the right radial artery . The venous sheath in the right basilic vein was exchanged to a 6-[place] sheath. Right heart catheterization was performed using [place] catheter, multiple samples and pressures were obtain. Heart cardiac output by thermodilution was calculated. Subsequently, selective coronary angiography was performed using a 5-[place]dean 3.5 bend Becky catheter. Multiple views of the coronary artery including hemiaxial views were obtained. The left Becky catheter was used to cross the aortic valve and LVEDP was calculated. Following that, catheter and sheath were removed. Hemostasis was obtained with deployment of vascular band . There was no immediate complication. Patient was returned to room in stable condition. Of note, the patient received a total of 5000 units of intravenous heparin as well as intra-arterial verapamil. Findings: Fluoroscopy: Severe calcification of the aortic valve and the coronary arteries was noted. Left main: This is a short sized vessel, bifurcating into LAD and left circumflex, left main has no high-grade stenosis LAD: This is a large size vessel, giving rise to a large proximal diagonal branch. The proximal LAD has a 50% plaque and there is another plaque of 40-50% after the diagonal branch takeoff the rest of the vessel has no high-grade stenosis. Left circumflex: This is a large nondominant vessel giving rise to a large obtuse marginal branch. The stented segment in the obtuse marginal branch is patent with no evidence of significant in-stent restenosis. There is 10-20% plaque at the ostium of the left circumflex. RCA: This is a dominant vessel, bifurcating distally into PDA and PLV. The midright coronary artery had mild diffuse intimal disease of 30% with no high- grade stenosis. Left Ventriculogram: Not performed Hemodynamics: Pulmonary artery systolic pressure of 36, diastolic of 4 with a mean of 16 mmHg. Pulmonary Wedge pressure A wave of 16, V wave 14 with a mean of 12 mmHg. Right ventricular systolic pressure 36, diastolic of 2 mmHg. Right atrium A wave of 8 V wave of 6 with a mean of 4 mmHg. Cardiac output by thermodilution 5.6 L/m LV peak systolic pressure 175 mmHg with an ascending aortic pressure of 125 mmHg with a peak gradient of 50 mmHg , LVEDP was 8-10 mmHg, aortic valve area by Hakki formula 0.8 cm. Conclusion: 1. Severely calcified aortic valve with severe aortic stenosis 2. Calcified coronary arteries with mild to moderate triple-vessel disease 3. Patent stent to the left circumflex 4. Right dominance Recommendations: The patient will continue on his present therapy and will be evaluated for aortic valve replacement, he will be seen at the valve clinic. The findings and the recommendations were discussed with the patient and he was in full understanding and agreement. Duration of sedation is 27 minutes.
[2023-06-23 12:14] VITALS: BP 123/65; PULSE 58
[2023-06-23] MEDS ORDERED: LOSARTAN 50 MG TAB PO SCH (21:00)
[2023-06-23] MEDS ORDERED: ATORVASTATIN 40 MG TAB PO SCH (21:00)
[2023-06-23] MEDS ORDERED: amLODIPine 5 MG TAB PO SCH (21:00)
[2023-06-24] MEDS ORDERED: ASPIRIN 81 MG PO SCH (09:00)
== END 2023-06-23 14:01 | disposition home or self-care (01) ==
LOC: CATHCVL 06:43
PROVIDERS: ATTEND Internal Medicine Interventional Cardiology
DX: I08.3 Combined rheumatic disorders of mitral, aortic and tricuspid valves (principal); I70.0 Atherosclerosis of aorta; I25.10 Atherosclerotic heart disease of native coronary artery without angina pectoris; I65.21 Occlusion and stenosis of right carotid artery; I10 Essential (primary) hypertension; E78.2 Mixed hyperlipidemia; Z79.82 Long term (current) use of aspirin; Z95.5 Presence of coronary angioplasty implant and graft; Z79.899 Other long term (current) drug therapy
CPT/HCPCS: 93312; 93320; 93325; 80048; 85018; 82810; 85025; C1769 ×2; C1894; C1751; J2250; J2001; J3010; J1644; Q9967; 93460

== ENCOUNTER → 2023-07-02 | Outpatient (CLI) | payer MEDICARE ==
[2023-07-02 08:03] LABS: INR 0.9 (<1.2); Partial Thromboplastin Time 24.8 sec (22.0-30.0); Prothrombin Time 10.5 sec (10.0-12.5)
[2023-07-02 08:14] LABS: NT-Pro-B-Type Natriuretic Pept 179 pg/mL
[2023-07-02 08:47] LABS: Appearance,Urine Clear (Clear); Bilirubin,Urine Negative (Negative); Blood,Urine Negative (Negative); Color,Urine Colorless; Glucose,Urine (UA) Negative (Negative); Ketones,Urine Negative (Negative); Leukocyte Esterase,Urine Negative (Negative); Nitrite,Urine Negative (Negative); Protein,Urine Negative (Negative); Specific Gravity,Urine 1.043 (1.001-1.035); Urobilinogen,Urine <2.0 mg/dL (<2.0)
[2023-07-02 08:52] LABS: ALT 48 U/L (4-49); AST 47 U/L (17-59); African American GFR (CKD) 82 (>60 ml/min/1.73 sqM); Albumin 4.2 g/dL (3.5-5.0); Albumin/Globulin Ratio 1.2; Alkaline Phosphatase 94 U/L (38-126); Anion Gap 11 mmol/L; Blood Urea Nitrogen 19 mg/dL (9-20); Calcium 9.1 mg/dL (8.4-10.2); Carbon Dioxide 29 mmol/L (22-30); Chloride 101 mmol/L (98-107); Globulin 3.4 g/dL; Glucose 107 mg/dL (74-99); Magnesium 2.1 mg/dL (1.6-2.3); Non-African American GFR(CKD) 71 (>60 ml/min/1.73 sqM); Potassium 4.4 mmol/L (3.5-5.1); Sodium 141 mmol/L (137-145); Total Bilirubin 0.7 mg/dL (0.2-1.3); Total Protein 7.6 g/dL (6.3-8.2)
[2023-07-02 11:54] LABS: Basophils # (A) 0.02 X 10*3/uL (0.00-0.10); Basophils % (A) 0.4 %; Eosinophils # (A) 0.09 X 10*3/uL (0.04-0.35); Eosinophils % (A) 1.8 %; HCT 44.3 % (39.6-50.0); HGB 14.6 g/dL (13.0-17.0); Lymphocytes # (A) 1.08 X 10*3/uL (0.90-5.00); Lymphocytes % (A) 21.2 %; MCH 31.1 pg (27.0-32.0); MCV 94.5 FL (80.0-97.0); Mean Platelet Volume 10.1 FL (9.5-12.2); Monocytes % (A) 11.8 %; NRBC Per 100 WBC 0 X 10*3/uL (0.00-0.01); Neutrophils % (A) 64.6 %; Platelet Count 222 X 10*3/uL (140-440); RBC 4.69 X 10*6/uL (4.40-5.60)
[2023-07-02 13:28] LABS: Hepatitis A Antibody IgM Nonreactive; Hepatitis B Core IgM Nonreactive; Hepatitis B Surface Antigen Nonreactive; Hepatitis C IgG Antibody Nonreactive
--- NOTE | 2023-07-02 15:16 | CT ---
EXAMINATION TYPE: CT TAVR Planning DATE OF EXAM: 07/02/2023 COMPARISON: None HISTORY: TAVR CT DLP: 2309.6 mGycm Automated exposure control for dose reduction was used. Contrast: None Technique: Axial images 0.5 mm thick sections. Study is performed with 125 mL Isovue-370 with 100 mL IV saline. Gated imaging was performed. FINDINGS: Visualized lung windows are clear. Some calcification is noted within the thoracic aorta. Coronary ar ciaran calcification is present. Calcification is at the aortic valve. Abdominal aorta and iliac vessels and common femoral arteries appear patent. Vascular calcification i s noted especially through the iliac vessels. IMPRESSION: 1. CT PERFORMED FOR PRESURGICAL EVALUATION.
[2023-07-02 16:31] LABS: Chol/HDL Ratio 2.52 Ratio; LDL Cholesterol,Calculated 54.4 mg/dL (0.0-131.0); VLDL Calculation 14.42 mg/dL (5.00-40.00)
== END | disposition home or self-care (01) ==
LOC: LABWHC1 06:58
PROVIDERS: ATTEND Thoracic Surgery (Cardiothoracic Vascular Surgery)
DX: Z01.818 Encounter for other preprocedural examination (principal); I35.0 Nonrheumatic aortic (valve) stenosis; E87.8 Other disorders of electrolyte and fluid balance, not elsewhere classified; E11.9 Type 2 diabetes mellitus without complications; Z79.899 Other long term (current) drug therapy; R58 Hemorrhage, not elsewhere classified; E07.9 Disorder of thyroid, unspecified; N28.9 Disorder of kidney and ureter, unspecified; E78.5 Hyperlipidemia, unspecified; R35.0 Frequency of micturition; Z79.01 Long term (current) use of anticoagulants
CPT/HCPCS: 94150; 83880; 80061; 80053; 80074; 84443; 83735; 85025; 85610; 85730; 81003; 87086; 83036; 71275; 36415 ×2; 74174; Q9967

== ENCOUNTER → 2023-08-28 | Outpatient (CLI) | payer MEDICARE ==
[2023-08-28 11:35] LABS: Partial Thromboplastin Time 23.5 sec (22.0-30.0); Prothrombin Time 10.8 sec (10.0-12.5)
[2023-08-28 16:22] LABS: Basophils # (A) 0.03 X 10*3/uL (0.00-0.10); Basophils % (A) 0.5 %; Eosinophils % (A) 1.7 %; HCT 45.4 % (39.6-50.0); HGB 15.2 g/dL (13.0-17.0); Lymphocytes # (A) 1.42 X 10*3/uL (0.90-5.00); Lymphocytes % (A) 24.8 %; MCH 31.7 pg (27.0-32.0); MCHC 33.5 g/dL (32.0-37.0); MCV 94.8 FL (80.0-97.0); Mean Platelet Volume 10.6 FL (9.5-12.2); Monocytes # (A) 0.69 X 10*3/uL (0.20-1.00); NRBC Per 100 WBC 0 X 10*3/uL (0.00-0.01); Neutrophils # (A) 3.47 X 10*3/uL (1.80-7.70); Neutrophils % (A) 60.7 %; Platelet Count 229 X 10*3/uL (140-440); RBC 4.79 X 10*6/uL (4.40-5.60); RDW 13.2 % (11.5-14.5); WBC 5.73 X 10*3/uL (4.50-10.00)
[2023-08-28 16:46] LABS: ALT 46 U/L (10-49); AST 36 U/L (14-35); Albumin 4.3 g/dL (3.8-4.9); Albumin/Globulin Ratio 1.39 Ratio (1.60-3.17); Alkaline Phosphatase 108 U/L (41-126); Blood Urea Nitrogen 15.8 mg/dL (9.0-27.0); Calcium 9.4 mg/dL (8.7-10.3); Carbon Dioxide 26.5 mmol/L (21.6-31.8); Chloride 101 mmol/L (96-109); Globulin 3.1 g/dL (1.6-3.3); Glucose 114 mg/dL (70-110); Potassium 4.2 mmol/L (3.5-5.5); Sodium 139 mmol/L (135-145); Total Bilirubin 0.6 mg/dL (0.3-1.2); Total Protein 7.4 g/dL (6.2-8.2)
== END | disposition home or self-care (01) ==
LOC: LABWHC1 10:31
PROVIDERS: ATTEND Thoracic Surgery (Cardiothoracic Vascular Surgery)
DX: Z01.812 Encounter for preprocedural laboratory examination (principal); I35.0 Nonrheumatic aortic (valve) stenosis; Z79.899 Other long term (current) drug therapy; Z79.01 Long term (current) use of anticoagulants
CPT/HCPCS: 36415; 80053; 85025; 85610; 85730; 86850; 86900; 86901

== ENCOUNTER 2023-09-02 05:40 | Inpatient (IN) | payer MEDICARE ==
[2023-09-02] MEDS ORDERED: LACTATED RINGERS 1,000 ML IV SCH ×2 (06:00→09:17)
[2023-09-02] MEDS ORDERED: ATORVASTATIN 10 MG TAB PO ONE (06:00)
[2023-09-02] MEDS ORDERED: CLEVIDIPINE BUTYRATE 25 MG in EMPTY BAG 1 BAG IV PRN (06:00)
[2023-09-02] MEDS ORDERED: ELECTROLYTE-A SOLUTION 1,000 ML with POTASSIUM CHLORIDE 100 MEQ, MAGNESIUM SULFATE 16 M... IV PRN ×5 (06:00)
[2023-09-02] MEDS ORDERED: INSULIN REGULAR 100 UNIT in SODIUM CHLORIDE 0.9% 100 ML IV PRN (06:00)
[2023-09-02] MEDS ORDERED: TRANEXAMIC ACID 2,000 MG in SODIUM CHLORIDE 0.9% 80 ML IV PRN (06:00)
[2023-09-02] MEDS ORDERED: PROTAMINE SULFATE 250 MG in EMPTY BAG 1 BAG IV PRN (06:00)
[2023-09-02] MEDS ORDERED: NITROGLYCERIN-D5W PMX 25 MG/250 ML BTL IV PRN (06:00)
[2023-09-02] MEDS ORDERED: CLOPIDOGREL 75 MG TAB PO ONE (06:00)
[2023-09-02] MEDS ORDERED: ASPIRIN 325 MG TAB PO ONE (06:00)
[2023-09-02] MEDS ORDERED: SODIUM CHLORIDE 0.9% 500 ML 500 ML INTRAARTER PRN (06:00)
[2023-09-02] MEDS ORDERED: METOPROLOL TARTRATE 12.5 MG TAB PO ONE (06:00)
[2023-09-02] MEDS ORDERED: SODIUM CHLORIDE 0.9% 1,000 ML IV ONE (06:13)
[2023-09-02] MEDS ORDERED: METOPROLOL TARTRATE 12.5 MG TAB PO STA (06:14)
[2023-09-02 06:28] LABS: Glucose,Whole Blood 113 mg/dL (70-110)
[2023-09-02] MEDS ORDERED: PROPOFOL 10 MG/ML 20 ML VIAL IV ONE (07:45)
[2023-09-02] MEDS ORDERED: PROTAMINE SULFATE 10 MG/ML 5 ML VIAL ONE (07:45)
[2023-09-02] MEDS ORDERED: ePHEDrine 50 MG/ML 1 ML VIAL ONE (07:45)
[2023-09-02] MEDS ORDERED: fentaNYL (PF) 50 MCG/ML 2 ML AMP ONE (07:45)
[2023-09-02] MEDS ORDERED: NEOSTIGMINE 1 MG/ML 10 ML VIAL ONE (07:45)
[2023-09-02] MEDS ORDERED: HEPARIN SODIUM,PORCINE 10,000 UNIT/ML 1 ML VIAL ONE (07:45)
[2023-09-02] MEDS ORDERED: MIDAZOLAM 2 MG/2 ML VIAL ONE (07:45)
[2023-09-02] MEDS ORDERED: ROCURONIUM 10 MG/ML (5 ML VIAL) IV ONE (07:45)
[2023-09-02] MEDS ORDERED: GLYCOPYRROLATE 0.2 MG/ML 2 ML VIAL ONE (07:45)
[2023-09-02] MEDS ORDERED: SUCCINYLCHOLINE CHLORIDE 200 MG/10 ML VIAL IV ONE (07:45)
[2023-09-02] MEDS ORDERED: LIDOCAINE 1% INJ 10MG/ML (20 ML MDV) ONE (07:45)
--- NOTE | 2023-09-02 07:57 | P.ANPRN ---
Procedure Note - Anesthesia - Invasive Line Left Arterial Line Time Out Performed: Yes (07) Date of Procedure: 09/02/23 Time of Procedure: 07:02 Location of Patient: CV[facility] Preparation: Sterile Prep, Sterile Dressing Arterial Line Location: Radial (left) Ultrasound Used: No Purpose - Visualization and Identification of Vasculature: No Needle Guage: 20g Image Stored and Saved: No Narrative: Central line placement per sterile protocol utilized. one attempt. pulsitile flow. lumen bled and flushed. Secured and sterilely dressed
[2023-09-02] MEDS ORDERED: SODIUM CHLORIDE 0.9% 100 ML BAG ONE (08:07)
[2023-09-02] MEDS ORDERED: ceFAZolin 1,000 MG VIAL ONE (08:07)
[2023-09-02] MEDS ORDERED: IOPAMIDOL-370 100ML BTL INJ ONE (08:56)
--- NOTE | 2023-09-02 09:08 | P.PCN ---
Date of Procedure: 09/02/23 Operative Findings: TRANSCATHETER AORITC VALVE REPLACEMENT OPERATIVE REPORT PROCEDURE PERFORMED: 1. Percutaneous Aortic Valve Implantation using a 29 mm Evolut FX 2. Transesophageal echocardiography (performed by anesthesia) 3. Ultrasound guided access and repair of [] femoral artery access site by Perclose closure device. 4. Placement of temporary pacemaker wire. 5. Aortic root angiography INDICATIONS: 1. 78 year-old with a history of severe symptomatic aortic valve stenosis. The patient was experiencing shortness of breath consistent with NYHA class II PERFORMING PHYSICIANS: 1. Favian Covarrubias MD Interventional Cardiology. 2. Isaias Olsen DO Interventional Cardiology 3. Phan Henley MD, Cardiothoracic Surgeon. SEDATION: General anesthesia provided by anesthesia, see separate note APPROACH: Bilateral femoral artery via percutaneous approach PROCEDURE DESCRIPTION: The patient was discussed at valve clinic with multidisciplinary approach with cardiothoracic surgeon as well as telephone instrument supervisor and thought better treated with TAVR. Risks, benefits, and alternatives of the procedure had been explained to the patient who understood the risks and agreed to proceed. After consents were obtained, patient was brought to the transcatheter aortic valve implantation room in the cardiac candlemaking laborer and general anesthesia was provided by the anesthesiologist (see separate report). Once full body sterile prep was performed, right subclavian venous access was obtained and a temporary pacemaker was screwed in, performed by cardiothoracic surgery. Pacing threshholds were checked and deemed appropriate. Next the left femoral artery waw accessed using a modified Seldinger technique, ultrasound guidance and micropuncture technique. A 6 Maldivian Rabi sheath was placed in the left femoral artery. Next, a 6-Maldivian pigtail catheter was advanced into the aorta and positioned in the aortic root, aortic root angiography was performed to determine optimal deployment angle. The right femoral artery was accessed using modified Seldinger technique, micropuncture technique and under direct ultrasound guidance. Femoral angiogram was done showing access in the common femoral artery and a 6Fr sheath was placed. Next preclose technique was performed using a two Perclose. Next a 0.035 Safari wire was placed in the Aorta via a pigtail catheter. Over that the Safari wire and a 14 Fr Roberta sheath was placed. Next a 6F- AL1 catheter was advanced over a wire to the aortic root. A straight wire was advanced through the catheter and used to cross the severely stenotic valve. The AL1 was then exchanged for a 6Fr pigtail catheter and pressure measurements were obtained. The 0.035 Safari wire was then positioned in the apex. Next a 29 mm Corevalve Evolut-Pro Plus was advanced. The valve was then positioned across the aortic valve and confirmed with aortic root angiography. [The valve was initially partially deployed however needed repositioning and therefore was recaptured.] The valve was then deployed in proper position using slow deploym ent and with rapid pacing in conjuncture with aortic root angiography and DARRELL. The delivery system was withdrawn back into the arch and an aortic root injection in conjunction with DARRELL demonstrated a satisfactory result. There was trivial para valvular leak. There was no evidence of any other significant abnormalities. The preclose Perclose was then deployed in the right femoral artery and hemostasis was achieved. We did perform selective right common femoral artery angiogram to confirm that. Femoral angiogram was performed that showed no contrast leak. The left femoral angiogram demonstrated an arteriotomy in the common femoral artery and this was repaired using a 6F angioseal device with complete hemostasis. The temporary venous pacemaker was sutured in place. The patient was then transported to the ICU in hemodynamically stable condition, requiring no pressor support. COMPLICATIONS: None RECOMMENDATIONS: The patient will be monitored in the ICU for hemodynamic and electrical stability. Patient will be on aspirin and Plavix.
[2023-09-02] MEDS ORDERED: IPRATROPIUM-ALBUTEROL 3 ML NEB INHALATION PRN (09:17)
[2023-09-02] MEDS ORDERED: DEXTROSE 50% SYRINGE 50 ML IVP PRN ×2 (09:17)
[2023-09-02] MEDS ORDERED: ACETAMINOPHEN TAB 325 MG TAB PO PRN (09:17)
[2023-09-02] MEDS ORDERED: ONDANSETRON 4 MG/2 ML VIAL IVP PRN (09:17)
[2023-09-02] MEDS ORDERED: CALCIUM GLUCONATE IN NACL 2 GM in SALINE 1 100ML.BAG IVPB PRN (09:17)
[2023-09-02] MEDS ORDERED: Potassium Replacement Protocol 1 EACH MISC MISCELLANE PRN (09:17)
[2023-09-02] MEDS ORDERED: Magnesium Replacement Protocol 1 EACH MISC MISCELLANE PRN (09:17)
[2023-09-02 09:33] LABS: Glucose,Whole Blood 112 mg/dL (70-110)
[2023-09-02 10:05] LABS: Basophils % (A) 0 %; Eosinophils # (A) 0.2 k/uL (0-0.7); Eosinophils % (A) 4 %; HCT 39.3 % (39.0-53.0); HGB 13.2 gm/dL (13.0-17.5); Lymphocytes # (A) 1.2 k/uL (1.0-4.8); Lymphocytes % (A) 22 %; MCH 32.1 pg (25.0-35.0); MCHC 33.6 g/dL (31.0-37.0); MCV 95.6 fL (80.0-100.0); Mean Platelet Volume 7.8; Monocytes # (A) 0.4 k/uL (0-1.0); Monocytes % (A) 7 %; Neutrophils # (A) 3.6 k/uL (1.3-7.7); Neutrophils % (A) 65 %; Platelet Count 182 k/uL (150-450); RBC 4.12 m/uL (4.30-5.90); WBC 5.5 k/uL (3.8-10.6)
[2023-09-02 10:37] LABS: African American GFR (CKD) >90 (>60 ml/min/1.73 sqM); Anion Gap 9 mmol/L; Blood Urea Nitrogen 19 mg/dL (9-20); Calcium 8.1 mg/dL (8.4-10.2); Carbon Dioxide 24 mmol/L (22-30); Chloride 104 mmol/L (98-107); Glucose 116 mg/dL (74-99); Non-African American GFR(CKD) 90 (>60 ml/min/1.73 sqM); Potassium 3.7 mmol/L (3.5-5.1); Sodium 137 mmol/L (137-145)
--- NOTE | 2023-09-02 11:24 | P.ANPRN ---
Procedure Note - Anesthesia - DARRELL Intraop Pre Bypass DARRELL Intraop - Anesthesia Indication: TAVR Date of Procedure: 09/02/23 Pre-operative Diagnosis: Aortic Stenosis Post-operative Diagnosis: same Surgeon: Phan Henley Left Ventricle: mild lvh Ejection Fraction: Normal Regional Wall Motion Abnormalities: None Left Ventricle Hypertrophy: Yes (mild) Right Ventricle: mild enlargement R. Ventricle Function: Normal Aortic Valve: LVOT 24, severely restricted valve opening Anatomy: Trileaflet Aortic Stenosis: Severe Aortic Regurgitation: Mild Mitral Stenosis: None Mitral Regurgitation: Trace Tricuspid Stenosis: None Tricuspid Regurgitation: None Pulmonic Stenosis: None Pulmonic Regurgitation: None R. Atrial Dilation: No R. Atrial PFO: No L. Atrial Dilation: No Aortic Dissection: No Aortic Calcification: None Plural Effusion: None
--- NOTE | 2023-09-02 11:26 | P.ANPRN ---
Procedure Note - Anesthesia - DARRELL Intraop Post Bypass DARRELL Intraop Post Bypass Procedure Performed: TAVR Left Ventricle: unchanged Ejection Fraction: Normal Regional Wall Motion Abnormalities: None R. Ventricle Function: Normal Aortic Valve: prosthetic valve in place. No perivalvular leak. Trace AI. Residual mean gradient 3 Mitral Valve: Unchanged Tricuspid: Unchanged Pulmonic: Unchanged Aortic Dissection: No
[2023-09-02] MEDS: MULTIVITAMINS, THERA 1 EACH TAB PO SCH (11:36)
[2023-09-02] MEDS: INSULIN ASPART (NovoLOG) 100 UNIT/ML VIAL SQ SCH ×3 (11:36→21:13)
--- NOTE | 2023-09-02 11:56 | P.OP ---
Date of Procedure: 09/02/23 Preoperative Diagnosis: Symptomatic calcific tricuspid aortic stenosis Postoperative Diagnosis: Same Procedure(s) Performed: Percutaneous right transfemoral implantation of transcatheter aortic valve prosthesis: 29 mm Medtronic Evolute FX valve Implants: 29 mm Medtronic Evolute FX valve Anesthesia: GETA Surgeon: Phan Henley (Cardiovascular surgeon) [employer] Stitcher #1: Favian Covarrubias (trouble tracer) [employer] Stitcher #2: Isaias Olsen (Second coal trimmer) Estimated Blood Loss (ml): 20 Pathology: none sent Condition: stable Disposition: ICU Indications for Procedure: 78-year-old male with severe calcific tricuspid aortic stenosis presents with shortness of breath. He was seen in the high risk valve clinic and felt to be appropriate for transcatheter aortic valve replacement. Elective procedure was scheduled. Operative Findings: Valve was very heavily calcified and difficult to cross. Transvalvular gradients were significant. Left ventricular function was diminished. Following implantation of the valve successfully at levels of 3 on the right and 5 on the left, blood pressure improved significantly. Description of Procedure: Patient was brought to the cardiac catheterization laboratory, placed supine on the operating table, anesthetized and intubated. The anterior torso and bilateral groins were sterilely prepped and draped. Following a timeout, the right subclavian vein was punctured with 18-gauge needle and guidewire threaded into the right heart. Temporary pacemaker was placed into the right atrium and manipulated into the apex of the right ventricle and screwed in area secured at its exit site with 2-0 silk suture ligatures. It was tested and noted to function well. Bilateral femoral arterial access was obtained under ultrasound guidance. On the left a long 6-Turkmen sheath was placed and advanced into the descending thoracic aorta. On the right 7-Turkmen sheath was placed and then 2 Perclose devices were placed. As upsized to 8-Turkmen sheath. This was exchanged for a 14-Turkmen sheath over a stiff wire and the patient was systemically heparinized. A pigtail catheter was advanced through the left femoral access and positioned in the noncoronary sinus of Valsalva. Root injection was performed. The aortic valve was crossed with a straight wire and a pigtail catheter was then manipulated into the apex of the ventricle. Transvalvular gradients were measured. A stiff wire was placed into the apex of the right ventricle and the pigtail catheter removed. A 29 Medtronic Evolute FX valve was loaded on the back field and brought up onto the table. 14-Turkmen sheath was exchanged for the valve delivery system and the valve delivery system was advanced through the vascular system and across the aortic valve. The valve was deployed under rapid ventricular pacing with depths of 5 on the right and 6 on the left. Patient tolerated the procedure well. There was only trivial leak noted. Heparin was reversed with protamine. The 14-Turkmen sheath was removed from the right groin and the 2 Perclose devices deployed. Following this the left femoral arterial sheath was removed and the femoral artery controlled with a Angio-Seal. He was awakened and transferred to ICU in stable condition.
--- NOTE | 2023-09-02 12:46 | XR ---
EXAMINATION TYPE: XR chest 1V portable DATE OF EXAM: 09/02/2023 Comparison: None Clinical History: 78-year-old male Post Operative Cardiac Surgery Findings: Endovascular aortic valve replacement. Heart mildly enlarged. Tortuous/ectatic thoracic aorta. Right ventricular transvenous pacer lead noted. Moderate interstitial prominence with a chronic appearance. No pleural effusion or consolidation. Impression: Mild cardiomegaly. Endovascular aortic valve replacement. Right ventricular transvenous pacer lead. N o definite acute process.
[2023-09-02 17:04] LABS: Glucose,Whole Blood 117 mg/dL (70-110)
[2023-09-02] MEDS ORDERED: SENNOSIDES-DOCUSATE SODIUM 1 EACH TAB PO SCH (21:00)
[2023-09-02] MEDS ORDERED: ATORVASTATIN 40 MG TAB PO SCH (21:00)
[2023-09-02] MEDS ORDERED: LOSARTAN 50 MG TAB PO SCH (21:00)
[2023-09-02] MEDS ORDERED: amLODIPine 5 MG TAB PO SCH (21:00)
[2023-09-02 21:06] LABS: Glucose,Whole Blood 132 mg/dL (70-110)
[2023-09-03] MEDS: HEPARIN SODIUM,PORCINE 5,000 UNIT/ML 1 ML VIAL SQ SCH ×2 (00:47→08:47)
[2023-09-03 06:20] LABS: Glucose,Whole Blood 122 mg/dL (70-110)
[2023-09-03] MEDS: INSULIN ASPART (NovoLOG) 100 UNIT/ML VIAL SQ SCH ×2 (06:21→12:15)
[2023-09-03 06:41] LABS: Basophils % (A) 0 %; Eosinophils # (A) 0.1 k/uL (0-0.7); Eosinophils % (A) 2 %; HCT 41.5 % (39.0-53.0); HGB 14.2 gm/dL (13.0-17.5); Lymphocytes # (A) 0.8 k/uL (1.0-4.8); Lymphocytes % (A) 12 %; MCH 32.4 pg (25.0-35.0); MCHC 34.2 g/dL (31.0-37.0); MCV 94.7 fL (80.0-100.0); Mean Platelet Volume 8.1; Monocytes # (A) 0.6 k/uL (0-1.0); Monocytes % (A) 8 %; Neutrophils % (A) 75 %; Platelet Count 153 k/uL (150-450); RBC 4.38 m/uL (4.30-5.90); RDW 13.4 % (11.5-15.5); WBC 6.7 k/uL (3.8-10.6)
[2023-09-03 06:45] LABS: Ionized Calcium 4.6 mg/dL (4.5-5.3)
[2023-09-03 06:58] LABS: ALT 32 U/L (4-49); AST 40 U/L (17-59); African American GFR (CKD) >90 (>60 ml/min/1.73 sqM); Albumin 3.6 g/dL (3.5-5.0); Alkaline Phosphatase 102 U/L (38-126); Anion Gap 9 mmol/L; Blood Urea Nitrogen 17 mg/dL (9-20); Calcium 8.5 mg/dL (8.4-10.2); Carbon Dioxide 25 mmol/L (22-30); Chloride 103 mmol/L (98-107); Glucose 124 mg/dL (74-99); Non-African American GFR(CKD) 88 (>60 ml/min/1.73 sqM); Sodium 137 mmol/L (137-145); Total Bilirubin 0.8 mg/dL (0.2-1.3); Total Protein 6.9 g/dL (6.3-8.2)
[2023-09-03 06:59] LABS: Potassium 3.8 mmol/L (3.5-5.1)
[2023-09-03] MEDS ORDERED: POTASSIUM CHLORIDE ER 20 MEQ TAB.ER PO SCH (07:00)
[2023-09-03] MEDS ORDERED: PANTOPRAZOLE 40 MG TABLET PO SCH (07:30)
--- NOTE | 2023-09-03 08:39 | XR ---
EXAM: XR chest 1V portable CLINICAL INDICATION:Male, 78 years old with history of Post Operative Cardiac Surgery; [facility] COMPARISON: 09/02/2023 TECHNIQUE: Chest single view. FINDINGS: Lines/tubes/devices: Right-sided temporary transvenous pacemaker lead in stable position terminating over the right ventricle. EKG leads over the chest. Cardiomediastinum: Cardiac silhouette appears stable, mildly enlarged. Post TAVR. Stable mediastinum with mild tortuosit y and ectasia of the aorta. Vasculature: No increased pulmonary vasculature. Lungs/pleura: Stable appearance of mild diffuse interstitial coarsening, likely chronic changes. No consolidation, effusion, or pneumothorax. Bones/soft tissues: Bony thorax appears grossly unchanged as seen. Regional soft tissues appear unremarkable. IMPRESSION: Stable chest.
[2023-09-03] MEDS: MULTIVITAMINS, THERA 1 EACH TAB PO SCH (08:46)
[2023-09-03] MEDS ORDERED: ASPIRIN 81 MG PO SCH (09:00)
[2023-09-03] MEDS ORDERED: MAGNESIUM HYDROXIDE 2,400 MG/30 ML CUP PO PRN (09:00)
[2023-09-03] MEDS ORDERED: bisacodyL 10 MG SUPP RECTAL PRN (09:00)
[2023-09-03] MEDS ORDERED: CHLORTHALIDONE 25 MG TAB PO SCH (09:00)
[2023-09-03 12:13] LABS: Glucose,Whole Blood 102 mg/dL (70-110)
[2023-09-03 12:34] VITALS: PULSE 59; TEMP 98.6
[2023-09-03 13:55] VITALS: BP 115/64; RESP 21
--- NOTE | 2023-09-03 14:45 | P.DS ---
Providers Date of admission: 09/02/23 05:40 Expected date of discharge: 09/03/23 Attending physician: Favian Covarrubias Consults: 09/02/23 06:00 Consult to Anesthesia Routine Consulting Provider: Anesthesia,Services Consult Reason/Comments: Cardiac Surgery Pre-Op 09/02/23 08:46 Consult Physician Routine Consulting Provider: Phan Henley Consult Reason/Comments: TAVR Do you want consulting provider notified?: Already Contacted Primary care physician: Jeremy Anthony Hospital Course: MEDICAL HISTORY: 1. Calcified aortic valve with severe symptomatic aortic valve stenosis, NYHA class II 2. CAD status post PCI 3. HTN 4. HLD 5. PVD 6. Right internal carotid artery stenosis PROCEDURE: 1. Percutaneous aortic valve implantation using a 29 mm Evolute FX under DARRELL and fluoroscopy guidance 2. Transesophageal echocardiography performed by anesthesia 3. Ultrasound-guided access and repair of right femoral artery access site by Perclose closure device 4. Placement of temporary pacemaker wire 5. Aortic root angiography HISTORY OF PRESENT ILLNESS: This is a 78-year-old gentleman who follows on an outpatient basis with Dr. Anthony for primary care and Dr. Moreno for cardiology. He has a known history of severe aortic stenosis and has been symptomatic with increased exertional dyspnea as well as fatigue. He had been referred to structural heart clinic for evaluation for transcatheter aortic valve replacement after heart catheterization and transesophageal echocardiogram were completed. Echocardiography demonstrated normal systolic function with EF 55- 60%, aortic valve area 0.7 cm with a peak/mean gradient 90/58 mmHg. Heart catheterization showed patent OM stent and no other significant obstructive coronary disease. After workup was completed STS risk score was calculated along with incremental risk and the patient was felt to be low risk for surgical aortic valve replacement, however taking into consideration the patient's values and wishes transcatheter aortic valve replacement was recommended. The usual course of TAVR was discussed in detail the patient, risks and benefits were reviewed, shared decision making between cardiology, surgery, and the patient/family took place, and the patient consented to proceed with the procedure. HOSPITAL COURSE: The patient was brought to the hospital on 09/02/23, was taken to the extended stay area, prepared in the usual fashion, and subsequently taken to the cardiac catheterization laboratory where Dr. Covarrubias and Dr. Henley completed TAVR procedure under general anesthesia with fluoroscopy and DARRELL. The valve was deployed under rapid ventricular pacing and proceeded without event. At the end of the procedure there was no significant gradient, hemodynamics were felt to be acceptable, and there was no evidence of significant perivalvular leak. Upon completion of the procedure the patient was extubated and was transferred to the cardiovascular intensive care unit where he was recovered and monitored hemodynamically. His oxygen was titrated down, he was tolerating oral diet, his pain was controlled, follow-up TTE demonstrated normal left ventricular systolic function, mean gradient 15 mmHg, mild aortic regurgitation and he was ready to be discharged to home on postoperative day #1. He received written and verbal instruction regarding his medications, activity restrictions, signs and symptoms requiring physician notification, and follow-up appointments. Patient Condition at Discharge: Stable Plan - Discharge Summary Discharge Rx Participant: No New Discharge Prescriptions: New Sennosides-Docusate Sodium [Senokot-S] 2 each PO HS PRN tab PRN Reason: Constipation Acetaminophen Tab [Tylenol] 650 mg PO Q4HR PRN tab PRN Reason: Fever And/ Or Mild Pain (1-3) Continue Aspirin 81 mg PO DAILY amLODIPine [Norvasc] 5 mg PO HS Chlorthalidone [Hygroton] 25 mg PO DAILY Atorvastatin [Lipitor] 40 mg PO HS Glucos Sul 2Kcl/MSM/Chond/C/Mn [Glucosamine Chondroitin Cap] 1 each PO DAILY Garlic 1 each PO DAILY Losartan [Cozaar] 50 mg PO HS Multivitamins, Thera [Multivitamin (formulary)] 1 tab PO DAILY Gore-3 Fatty Acids/Fish Oil [Fish Oil 1,000 mg Softgel] 1 each PO DAILY Cinnamon Bark [Cinnamon] 500 mg PO DAILY Nitroglycerin Sl Tabs [Nitrostat] 0.4 mg SUBLINGUAL Q5M PRN #25 tab PRN Reason: Chest Pain metFORMIN HCL [Glucophage] 500 mg PO QAM #0 Discharge Medication List Aspirin 81 mg PO DAILY 02/14/14 [History] Atorvastatin [Lipitor] 40 mg PO HS 06/04/20 [History] Chlorthalidone [Hygroton] 25 mg PO DAILY 06/04/20 [History] amLODIPine [Norvasc] 5 mg PO HS 06/04/20 [History] Cinnamon Bark [Cinnamon] 500 mg PO DAILY 11/30/20 [History] Garlic 1 each PO DAILY 11/30/20 [History] Glucos Sul 2Kcl/MSM/Chond/C/Mn [Glucosamine Chondroitin Cap] 1 each PO DAILY 11/30/20 [History] Gore-3 Fatty Acids/Fish Oil [Fish Oil 1,000 mg Softgel] 1 each PO DAILY 11/30/20 [History] Nitroglycerin Sl Tabs [Nitrostat] 0.4 mg SUBLINGUAL Q5M PRN #25 tab 12/05/20 [Rx] Losartan [Cozaar] 50 mg PO HS 06/23/23 [History] Multivitamins, Thera [Multivitamin (formulary)] 1 tab PO DAILY 08/26/23 [History] Acetaminophen Tab [Tylenol] 650 mg PO Q4HR PRN tab 09/03/23 [Rx] Sennosides-Docusate Sodium [Senokot-S] 2 each PO HS PRN tab 09/03/23 [Rx] metFORMIN HCL [Glucophage] 500 mg PO QAM #0 09/03/23 [Rx] Follow up Appointment(s)/Referral(s): Benjamin Moreno MD [STAFF PHYSICIAN] - 09/15/23 11:00 am (Your appointment 09/15/23 is for a groin check. You also have a 30 day TAVR follow up echo and appointment with Dr. Moreno 11/12/23 @ 3:15 pm, and a 1 year TAVR follow up echo and appointment with Dr. Moreno 08/11/24 @ 1 pm) Jeremy Anthony MD [Primary Care Provider] - As Needed Clinic,Structural Heart [NON-STAFF] - 11/12/23 2:45 pm (You have a 30 day post TAVR appointment in the valve clinic 11/11 @ 2:45 pm, and a 1 year post TAVR appointment in the valve clinic 08/11 @ 2 pm) Ambulatory/Diagnostic Orders: Basic Metabolic Panel [LAB.AMB] Location: None Selected Basic Metabolic Panel [LAB.AMB] Location: None Selected Complete Blood Count w/diff [LAB.AMB] Location: None Selected Complete Blood Count w/diff [LAB.AMB] Location: None Selected Activity/Diet/Wound Care/Special Instructions: DISCHARGE INSTRUCTIONS: 1. No driving for 1 week, or until physician gives their ok. 2. No lifting, pushing, or pulling more than 5-10 pounds for 1 week. 3. Hold both groins when you cough or sneeze for the next 2 weeks. Bruising is common, but report increased swelling, pain or fever >101F 4. Shower daily. No pool, hot tub, or bathtub for 1 week 5. No powders, lotions, ointments on incisions. 6. No straining, including for bowel movements. Use stool softner if necessary 7. Stairs are not an issue. Go slowly, using handrail and take 1 step at a time. Ambulate several times daily 8. Continue pain control per as needed orders. 9. Take only the medications listed on your discharge form 10. Eat low salt (limited to 2 grams or 2000 milligrams) daily, avoid adding salt, avoid canned/processed foods 11. Take your weight daily in the morning and record, bring with you to your follow up appointments 12. Keep all follow up appointments. You will need a valve clinic appointment at 30 days and 1 year post procedure for follow up 13. You have been referred to and are expected to begin Cardiac Rehab in approximately 4 weeks. 14. You will need antibiotics prior to any dental work, including cleanings, and any surgeries to prevent Endocarditis (bacterial infection in your heart) For any questions or concerns please call your valve coordinators: Mady or Ananda @ Discharge Disposition: HOME SELF-CARE
--- NOTE | 2023-09-03 17:18 | CA ---
Transthoracic Echo Report Name: Jaylen Smith Age: 78 Gender: M : 1945 Exam Date: 09/03/2023 07:35 Exam Location: [facility] Ht (in): 67 Wt (lb): 223 Ordering Physician: Mady Hugo Attending/Referring Phys: [id number], [employer] Nellie Zambrano RDCS Procedure CPT: Indications: post TAVR Cardiac Hx: Technical Quality: Technically difficult study Contrast 1: Definity Total Dose (mL): 2 Contrast 2: Total Dose (mL): MEASUREMENTS (Male / Female) Normal Values 2D ECHO LV Diastolic Diameter PLAX 4.9 cm 4.2 - 5.9 / 3.9 - 5.3 cm LV Systolic Diameter PLAX 3.7 cm IVS Diastolic Thickness 1.4 cm 0.6 - 1.0 / 0.6 - 0.9 cm LVPW Diastolic Thickness 1.4 cm 0.6 - 1.0 / 0.6 - 0.9 cm LV Relative Wall Thickness 0.6 RV Internal Dim ED PLAX 3.5 cm LVOT Diameter 1.9 cm LA Systolic Diameter LX 3.5 cm 3.0 - 4.0 / 2.7 - 3.8 cm LV Diastolic Volume MOD BP 75.6 cm??? 67 - 155 / 56 - 104 cm??? LV Systolic Volume MOD BP 22.2 cm??? 22 - 58 / 19 - 49 cm??? LV Ejection Fraction MOD BP 70.6 % >= 55 % LV Cardiac Index MOD BP 1461.6 cm???/min???m??? LV Diastolic Volume MOD 4C 90.0 cm??? LV Systolic Volume MOD 4C 25.2 cm??? LV Ejection Fraction MOD 4C 72.0 % LV Cardiac Index MOD 4C 1774.6 cm???/min???m??? LV Diastolic Length 4C 7.6 cm LV Systolic Length 4C 6.4 cm LV Diastolic Volume MOD 2C 54.1 cm??? LV Systolic Volume MOD 2C 17.6 cm??? LV Ejection Fraction MOD 2C 67.5 % LV Cardiac Index MOD 2C 999.5 cm???/min???m??? LV Diastolic Length 2C 6.4 cm LV Systolic Length 2C 5.5 cm LA Volume 59.9 cm??? 18 - 58 / 22 - 52 cm??? LA Volume Index 26.9 cm???/m??? 16 - 28 cm???/m??? M-MODE Aortic Root Diameter MM 2.8 cm DOPPLER AV Peak Velocity 269.8 cm/s AV Peak Gradient 29.1 mmHg AV Mean Velocity 172.1 cm/s AV Mean Gradient 14.0 mmHg AV Velocity Time Integral 50.9 cm AI Peak Velocity 244.2 cm/s AI Peak Gradient 23.8 mmHg AI Pressure Half Time 892.1 ms LVOT Peak Velocity 112.5 cm/s LVOT Peak Gradient 5.1 mmHg AV Area Cont Eq pk 1.2 cm??? MV Area PHT 3.0 cm??? Mitral E Point Velocity 106.1 cm/s Mitral A Point Velocity 100.3 cm/s Mitral E to A Ratio 1.1 MV Deceleration Time 251.8 ms MV E' Velocity 7.3 cm/s Mitral E to MV E' Ratio 14.6 TR Peak Velocity 297.3 cm/s TR Peak Gradient 35.4 mmHg Right Ventricular Systolic Press 40.3 mmHg FINDINGS Left Ventricle Left ventricular ejection fraction is estimated at 55-60 %. Left ventricular cavity size normal. Moderate concentric left ventricular hypertrophy. Right Ventricle Mild right ventricular dilatation. Mild pulmonary hypertension. Right Atrium Right atrium not well visualized. Left Atrium Mildly increased left atrial volume. Mitral Valve Mitral valve thickened. Mitral annular calcification. Aortic Valve Post TAVR max gradient 29 mmHg and mean gradient 14 mmHg. Mild aortic regurgitation. Mild periprosthetic regurgitation Tricuspid Valve Structurally normal tricuspid valve. Mild tricuspid regurgitation. Pulmonic Valve Pulmonic valve not well visualized. Pericardium No pericardial effusion. Aorta Normal size aortic root and proximal ascending aorta. CONCLUSIONS Normal LV function Bioprosthetic valve in aortic position with mild aortic regurgitation with a peak gradient of 29 mm and a mean gradient of 14 mm across the valve it is not well-visualized Previewed by: Dr. Meek Jones MD (Electronically Signed) Final Date: 03 September 2023 17:17
== END 2023-09-03 15:27 | disposition home or self-care (01) | DRG 267 ==
LOC: 2ORMAIN 05:40 → 2SICU 09:00
PROVIDERS: ADMIT Internal Medicine Interventional Cardiology; ATTEND Internal Medicine Interventional Cardiology
PROC: B24BZZ4 Ultrasonography of Heart with Aorta, Transesophageal (ICD-10-PCS; principal; 2023-09-02 08:00)
PROC: B41D1ZZ Fluoroscopy of Aorta and Bilateral Lower Extremity Arteries using Low Osmolar Contrast (ICD-10-PCS; principal; 2023-09-02 08:00)
PROC: 02RF38Z Replacement of Aortic Valve with Zooplastic Tissue, Percutaneous Approach (ICD-10-PCS; principal; 2023-09-02 08:00)
DX: I35.8 Other nonrheumatic aortic valve disorders (principal); I25.10 Atherosclerotic heart disease of native coronary artery without angina pectoris; E78.5 Hyperlipidemia, unspecified; I10 Essential (primary) hypertension; Z98.61 Coronary angioplasty status; I73.9 Peripheral vascular disease, unspecified; I65.21 Occlusion and stenosis of right carotid artery; R00.1 Bradycardia, unspecified
CPT/HCPCS: 33210; 33361; 71045; 80048; 80053; 82330; 83735; 85025; 86850; 86900; 86901; 93306; 93312; 93320; 93325

== ENCOUNTER → 2023-10-29 | Outpatient (CLI) | payer MEDICARE ==
[2023-10-29 09:26] LABS: ALT 46 U/L (4-49); AST 49 U/L (17-59); African American GFR (CKD) 72 (>60 ml/min/1.73 sqM); Albumin 4.2 g/dL (3.5-5.0); Albumin/Globulin Ratio 1.2; Alkaline Phosphatase 94 U/L (38-126); Anion Gap 8 mmol/L; Blood Urea Nitrogen 29 mg/dL (9-20); Calcium 9.2 mg/dL (8.4-10.2); Carbon Dioxide 29 mmol/L (22-30); Chloride 102 mmol/L (98-107); Globulin 3.4 g/dL; Glucose 120 mg/dL (74-99); Non-African American GFR(CKD) 63 (>60 ml/min/1.73 sqM); Potassium 4.3 mmol/L (3.5-5.1); Sodium 139 mmol/L (137-145); Total Bilirubin 0.8 mg/dL (0.2-1.3); Total Protein 7.6 g/dL (6.3-8.2)
[2023-10-29 16:00] LABS: Chol/HDL Ratio 2.39 Ratio; LDL Cholesterol,Calculated 50.8 mg/dL (0.0-131.0); VLDL Calculation 14.98 mg/dL (5.00-40.00)
== END | disposition home or self-care (01) ==
LOC: LABWHC1 08:03
PROVIDERS: ATTEND Internal Medicine Interventional Cardiology
DX: I35.0 Nonrheumatic aortic (valve) stenosis (principal); E78.2 Mixed hyperlipidemia; Z95.2 Presence of prosthetic heart valve
CPT/HCPCS: 36415; 80053; 80061

== ENCOUNTER → 2023-11-14 | Outpatient (CLI) | payer MEDICARE ==
[2023-11-14 13:37] LABS: Basophils # (A) 0.03 X 10*3/uL (0.00-0.10); Basophils % (A) 0.5 %; Eosinophils # (A) 0.13 X 10*3/uL (0.04-0.35); Eosinophils % (A) 2.2 %; HGB 14.8 g/dL (13.0-17.0); Lymphocytes # (A) 1.38 X 10*3/uL (0.90-5.00); Lymphocytes % (A) 23.7 %; MCH 31.4 pg (27.0-32.0); MCHC 32.9 g/dL (32.0-37.0); MCV 95.3 FL (80.0-97.0); Mean Platelet Volume 10.2 FL (9.5-12.2); Monocytes # (A) 0.56 X 10*3/uL (0.20-1.00); Monocytes % (A) 9.6 %; NRBC Per 100 WBC 0 X 10*3/uL (0.00-0.01); Neutrophils # (A) 3.69 X 10*3/uL (1.80-7.70); Neutrophils % (A) 63.5 %; Platelet Count 208 X 10*3/uL (140-440); RBC 4.72 X 10*6/uL (4.40-5.60); RDW 12.7 % (11.5-14.5); WBC 5.82 X 10*3/uL (4.50-10.00)
== END | disposition home or self-care (01) ==
LOC: LABWHC1 09:23
PROVIDERS: ATTEND Thoracic Surgery (Cardiothoracic Vascular Surgery)
DX: D64.9 Anemia, unspecified (principal)
CPT/HCPCS: 36415; 85025

== ENCOUNTER → 2024-05-12 | Outpatient (CLI) | payer MEDICARE ==
[2024-05-12 10:30] LABS: ALT 40 U/L (10-49); AST 39 U/L (14-35); Albumin 4.2 g/dL (3.8-4.9); Alkaline Phosphatase 103 U/L (41-126); Blood Urea Nitrogen 20.1 mg/dL (9.0-27.0); Carbon Dioxide 27.2 mmol/L (21.6-31.8); Chloride 103 mmol/L (96-109); Chol/HDL Ratio 2.67 Ratio; Globulin 2.8 g/dL (1.6-3.3); Glucose 113 mg/dL (70-110); LDL Cholesterol,Calculated 51.5 mg/dL (0.0-131.0); Potassium 4.1 mmol/L (3.5-5.5); Sodium 140 mmol/L (135-145); Total Bilirubin 0.7 mg/dL (0.3-1.2)
== END | disposition home or self-care (01) ==
LOC: LABWHC1 07:48
PROVIDERS: ATTEND Internal Medicine Interventional Cardiology
DX: E78.2 Mixed hyperlipidemia (principal)
CPT/HCPCS: 36415; 80053; 80061

== ENCOUNTER → 2024-08-03 | Outpatient (CLI) | payer MEDICARE ==
[2024-08-03 09:10] LABS: Basophils % (A) 1 %; Eosinophils # (A) 0.2 k/uL (0-0.7); Eosinophils % (A) 4 %; HCT 43.7 % (39.0-53.0); HGB 14.6 gm/dL (13.0-17.5); Lymphocytes # (A) 1.5 k/uL (1.0-4.8); Lymphocytes % (A) 25 %; MCH 32.3 pg (25.0-35.0); MCHC 33.3 g/dL (31.0-37.0); MCV 96.9 fL (80.0-100.0); Mean Platelet Volume 7.1; Monocytes # (A) 0.4 k/uL (0-1.0); Monocytes % (A) 7 %; Neutrophils # (A) 3.6 k/uL (1.3-7.7); Neutrophils % (A) 61 %; Platelet Count 212 k/uL (150-450); RBC 4.51 m/uL (4.30-5.90); RDW 12.7 % (11.5-15.5); WBC 5.9 k/uL (3.8-10.6)
[2024-08-03 09:45] LABS: African American GFR (CKD) 85 (>60 ml/min/1.73 sqM); Anion Gap 7 mmol/L; Blood Urea Nitrogen 23 mg/dL (9-20); Calcium 9.2 mg/dL (8.4-10.2); Carbon Dioxide 30 mmol/L (22-30); Chloride 103 mmol/L (98-107); Glucose 115 mg/dL (74-99); Non-African American GFR(CKD) 73 (>60 ml/min/1.73 sqM); Potassium 4.8 mmol/L (3.5-5.1); Sodium 140 mmol/L (137-145)
== END | disposition home or self-care (01) ==
LOC: LABWHC1 08:18
PROVIDERS: ATTEND Nurse Practitioner Acute Care
DX: I35.0 Nonrheumatic aortic (valve) stenosis (principal); Z95.2 Presence of prosthetic heart valve
CPT/HCPCS: 36415; 80048; 85025

== ENCOUNTER → 2025-02-08 | Outpatient (CLI) | payer MEDICARE ==
[2025-02-08 10:41] LABS: ALT 46 U/L (10-49); AST 42 U/L (14-35); Albumin 4.2 g/dL (3.8-4.9); Albumin/Globulin Ratio 1.45 Ratio (1.60-3.17); Alkaline Phosphatase 86 U/L (41-126); Blood Urea Nitrogen 23.4 mg/dL (9.0-27.0); Calcium 9.3 mg/dL (8.7-10.3); Carbon Dioxide 25.8 mmol/L (21.6-31.8); Chloride 102 mmol/L (96-109); Chol/HDL Ratio 2.72 Ratio; Globulin 2.9 g/dL (1.6-3.3); Glucose 127 mg/dL (70-110); Potassium 3.9 mmol/L (3.5-5.5); Sodium 139 mmol/L (135-145); Total Bilirubin 0.5 mg/dL (0.3-1.2); Total Protein 7.1 g/dL (6.2-8.2); VLDL Calculation 15.86 mg/dL (5.00-40.00)
== END | disposition home or self-care (01) ==
LOC: LABWHC1 07:36
PROVIDERS: ATTEND Internal Medicine Interventional Cardiology
DX: E78.2 Mixed hyperlipidemia (principal)
CPT/HCPCS: 36415; 80053; 80061